=== PATIENT | female | born 1960 | race Two or more races ===

== ENCOUNTER 2020-09-25 11:45 | Outpatient (REF) | payer OTHER, SELFPAY ==
[2020-09-25 13:46] LABS: Hematocrit 39.9 % (37-47); Hemoglobin 12.8 g/dl (12.0-16.0); Mean Corpuscular HGB Conc 32.1 g/dl (31.0-35.0); Mean Corpuscular Hemoglobin 30.6 pg (27.0-33.0); Mean Corpuscular Volume 95.5 fL (80-98); Mean Platelet Volume 9.1 fL (9.4-12.3); Platelet Count 383 X10*3/uL (160-400); Red Blood Count 4.18 X10*6/uL (4.20-5.50); Red Cell Distribution Width 13.9 % (11.0-16.0); White Blood Count 8.1 X10*3/uL (4.8-10.8)
[2020-09-25 13:50] LABS: Estimated Average Glucose 143 mg/dL; Hemoglobin A1c % 6.6 %
[2020-09-25 14:05] LABS: Alanine Aminotransferase 11 U/L (0-31); Albumin Level 4.1 g/dL (3.5-5.0); Alkaline Phosphatase 81 U/L (39-117); Aspartate Amino Transferase 16 U/L (5-31); Bilirubin Direct 0.2 mg/dL (0.0-0.5); Bilirubin Total 0.5 mg/dL (0.0-1.0); Cholesterol 165 mg/dL; HDL Cholesterol 43 mg/dL; LDL Cholesterol Calculated 104 mg/dl; Total Protein 7.3 g/dL (6.5-8.0); Triglycerides 94 mg/dL
[2020-09-25 14:16] LABS: Thyroid Stimulating Hormone 1.72 uIU/mL (0.32-4.0)
== END 2020-09-25 11:46 | disposition home or self-care (01) ==
LOC: HO.LAB 11:45
PROVIDERS: PCP Internal Medicine; Visit Provider Internal Medicine
DX: E11.65 Type 2 diabetes mellitus with hyperglycemia (principal); E78.00 Pure hypercholesterolemia, unspecified
CPT/HCPCS: 36415; 80061; 80076; 83036; 84443; 85027

== ENCOUNTER 2021-05-18 08:02 | Outpatient (REF) | payer OTHER, SELFPAY ==
--- NOTE | ~2021-05-18 | MM_ITS ---
EXAMINATION: MM SCREENING DIGITAL BREAST TOMOSYNTHESIS, BILATERAL CLINICAL INFORMATION: Screening. Asymptomatic. The lifetime risk of breast cancer based on the Tyrer-Cuzick Model is 16%. COMPARISON: Mammography: 01/14/2019, 12/16/2017, 07/05/2016 TECHNIQUE: Digital breast tomosynthesis is performed in both the craniocaudal and mediolateral oblique views along with computer-aided detection (CAD). Synthesized 2D images are generated from the tomosynthesis. Additional right MLO view is provided. FINDINGS: There are scattered areas of fibroglandular density (ACR BI-RADS breast composition Category b). There are no significant masses, abnormal calcifications, or other abnormalities. Parenchymal pattern is similar to prior studies. There is no developing density or architectural abnormality. The axilla and skin contours are unremarkable. No significant changes. MM/MM tomosynthesis screening BI IMPRESSION: There are no significant changes from prior study. ASSESSMENT: BI-RADS 1: Negative RECOMMENDATION: Routine annual mammography screening. This patient's information was entered into a reminder system with a target due date for their next mammogram.
[2021-05-18 08:51] LABS: Alanine Aminotransferase 11 U/L (0-31); Alkaline Phosphatase 79 U/L (39-117); Anion Gap 9 (12-20); Aspartate Amino Transferase 17 U/L (5-31); Bilirubin Total 0.4 mg/dL (0.0-1.0); Blood Urea Nitrogen 13 mg/dL (9-16); Calcium 9.7 mg/dL (8.4-10.2); Carbon Dioxide 29 mmol/L (22-29); Chloride 106 mmol/L (96-108); Cholesterol 256 mg/dL; Estimated Glomerular Filt Rate 56; Glucose Random 130 mg/dL (60-115); HDL Cholesterol 37 mg/dL; LDL Cholesterol Calculated 197 mg/dl; Potassium 4.8 mmol/L (3.3-5.1); Sodium 139 mmol/L (135-145); Total Protein 7.7 g/dL (6.5-8.0); Triglycerides 112 mg/dL
== END 2021-05-18 08:03 | disposition home or self-care (01) ==
LOC: HO.MAMMO 08:02
PROVIDERS: PCP Internal Medicine; Visit Provider Internal Medicine
DX: Z12.31 Encounter for screening mammogram for malignant neoplasm of breast (principal); E78.00 Pure hypercholesterolemia, unspecified
CPT/HCPCS: 36415; 77063; 77067; 80053; 80061

== ENCOUNTER 2021-07-18 07:55 | Outpatient (REF) | payer OTHER, SELFPAY ==
[2021-07-18 09:07] LABS: Alanine Aminotransferase 11 U/L (0-31); Albumin Level 4.2 g/dL (3.5-5.0); Alkaline Phosphatase 73 U/L (39-117); Anion Gap 12 (12-20); Aspartate Amino Transferase 17 U/L (5-31); Bilirubin Total 0.5 mg/dL (0.0-1.0); Blood Urea Nitrogen 10 mg/dL (9-16); Calcium 10.8 mg/dL (8.4-10.2); Carbon Dioxide 28 mmol/L (22-29); Chloride 104 mmol/L (96-108); Cholesterol 183 mg/dL; Estimated Glomerular Filt Rate 51; Glucose Random 107 mg/dL (60-115); HDL Cholesterol 40 mg/dL; LDL Cholesterol Calculated 124 mg/dl; Potassium 5.2 mmol/L (3.3-5.1); Sodium 139 mmol/L (135-145); Total Protein 7.8 g/dL (6.5-8.0); Triglycerides 97 mg/dL
== END 2021-07-18 07:56 | disposition home or self-care (01) ==
LOC: HO.LAB 07:55
PROVIDERS: PCP Internal Medicine; Visit Provider Internal Medicine
DX: E78.00 Pure hypercholesterolemia, unspecified (principal)
CPT/HCPCS: 36415; 80053; 80061

== ENCOUNTER 2021-08-06 07:35 | Outpatient (REF) | payer OTHER, SELFPAY ==
[2021-08-06 08:24] LABS: Anion Gap 13 (12-20); Blood Urea Nitrogen 7 mg/dL (9-16); Calcium 9.4 mg/dL (8.4-10.2); Carbon Dioxide 27 mmol/L (22-29); Chloride 106 mmol/L (96-108); Estimated Glomerular Filt Rate 52; Glucose Random 109 mg/dL (60-115); Potassium 4.8 mmol/L (3.3-5.1); Sodium 141 mmol/L (135-145)
[2021-08-07 11:37] LABS: Calcium (PTHI) 9.3 mg/dL (8.6-10.4); PTHI 87 pg/mL (16-77)
[2021-08-09 14:52] LABS: Calcium, Ionized 5.1 mg/dL (4.8-5.6)
== END 2021-08-06 07:36 | disposition home or self-care (01) ==
LOC: HO.LAB 07:35
PROVIDERS: PCP Internal Medicine; Visit Provider Internal Medicine
DX: E78.00 Pure hypercholesterolemia, unspecified (principal); E83.52 Hypercalcemia
CPT/HCPCS: 36415; 80048; 82330; 83970

== ENCOUNTER 2022-02-06 12:38 | Outpatient (REF) | payer OTHER, SELFPAY ==
[2022-02-06 13:37] LABS: Alanine Aminotransferase 10 U/L (0-31); Albumin Level 4.7 g/dL (3.5-5.0); Alkaline Phosphatase 75 U/L (39-117); Anion Gap 15 (12-20); Aspartate Amino Transferase 16 U/L (5-31); Bilirubin Total 0.4 mg/dL (0.0-1.0); Blood Urea Nitrogen 9 mg/dL (9-16); Calcium 10.1 mg/dL (8.4-10.2); Carbon Dioxide 29 mmol/L (22-29); Chloride 101 mmol/L (96-108); Cholesterol 178 mg/dL; Estimated Glomerular Filt Rate 45; Glucose Random 88 mg/dL (60-115); HDL Cholesterol 58 mg/dL; LDL Cholesterol Calculated 101 mg/dl; Potassium 5.2 mmol/L (3.3-5.1); Sodium 140 mmol/L (135-145); Total Protein 8.2 g/dL (6.5-8.0); Triglycerides 96 mg/dL
== END 2022-02-06 12:39 | disposition home or self-care (01) ==
LOC: HO.LAB 12:38
PROVIDERS: PCP Internal Medicine; Visit Provider Internal Medicine
DX: E78.00 Pure hypercholesterolemia, unspecified (principal)
CPT/HCPCS: 36415; 80053; 80061

== ENCOUNTER 2022-03-08 09:29 | Outpatient (REF) | payer OTHER, SELFPAY ==
--- NOTE | ~2022-03-08 | MM_ITS ---
EXAMINATION: BONE DENSITOMETRY CLINICAL INDICATION: Osteoporosis. COMPARISON: Previous BD dated 01/14/2019 and baseline BD dated 01/19/2015. TECHNIQUE: Using a [employer] DXA System (software version: 13.1) manufactured by [employer], dual-energy x-ray absorptiometry was performed of the lumbar spine and left hip. The images are of good technical quality. Summary results are attached. FINDINGS: AP SPINE L1-L4: Current: BMD 1.001 g/cm2, Z-score -0.1, T-score -1.5, osteopenia, 1.2% decrease from previous, 8.3% decrease from baseline (<5% change is not significant). Prior: BMD 1.013 g/cm2. Baseline: BMD 1.092 g/cm2. LEFT FEMUR, NECK: Current: BMD 0.711 g/cm2, Z-score -1.0, T-score -2.4, osteopenia. Prior: BMD 0.779 g/cm2. Baseline: BMD 0.802 g/cm2. LEFT FEMUR, TOTAL: Current: BMD 0.857 g/cm2, Z-score -0.2, T-score -1.2, osteopenia, 7.6% decrease from previous, 3.4% decrease from baseline (<5% change is not significant). Prior: BMD 0.927 g/cm2. Baseline: BMD 0.887 g/cm2. IDENTIFIED RISK FACTORS: Menopause, height loss, low calcium intake, rheumatoid arthritis, tobacco use (current smoker). HISTORY OF FRACTURE: None listed. MEDICATIONS: None listed. MM/XR DEXA axial skeleton IMPRESSION: 1. DIAGNOSIS: Osteopenia based on the lowest T-score value of -2.4 in the femoral neck applying World Health Organization criteria. 2. 10-YEAR FRACTURE RISK PREDICTION, FRAX: Major osteoporotic fracture (clinical spine, forearm, hip or shoulder) 8.9%. Hip fracture 2.6%. 3. Treatment Recommendations: NOF guidelines recommend consideration for treatment in postmenopausal women and men age 50 and older presenting with the following: -A hip or vertebral (clinical or morphometric) fracture. -T-score less than or equal to -2.5 at the femoral neck or spine after appropriate evaluation to exclude secondary causes. -Low bone mass at the hip or spine and a 10-year fracture probability by FRAX of greater than or equal to 3% for hip fracture or greater than or equal to 20% for major osteoporotic fracture based on the [place] adapted WHO algorithm. 4. Other Recommendations: All treatment decisions require clinical judgment and consideration of individual patient factors, including patient preferences, comorbidities, previous drug use, risk factors not captured in the FRAX model (e.g. frailty, falls, vitamin D deficiency, increased bone turnover, interval significant decline in bone density) and possible under or overestimation of fracture risk by FRAX. Additional medical evaluation for secondary cause of low bone mineral density may be appropriate. FUTURE SCAN RECOMMENDATION: People with diagnosed cases of osteoporosis or at high risk for fracture should have regular bone mineral density tests. For patients eligible for Medicare, routine testing is allowed once every 2 years. The testing frequency can be increased to one year for patients who have rapidly progressing disease, those who are receiving or discontinuing medical therapy to restore bone mass, or have additional risk factors.
== END 2022-03-08 09:30 | disposition home or self-care (01) ==
LOC: HO.MAMMO 09:29
PROVIDERS: PCP Internal Medicine; Visit Provider Internal Medicine
DX: Z13.820 Encounter for screening for osteoporosis (principal); M81.0 Age-related osteoporosis without current pathological fracture; M85.80 Other specified disorders of bone density and structure, unspecified site; Z78.0 Asymptomatic menopausal state
CPT/HCPCS: 77080

== ENCOUNTER 2022-06-28 14:06 | Outpatient (REF) | payer OTHER, SELFPAY ==
--- NOTE | ~2022-06-28 | MM_ITS ---
EXAMINATION: MM SCREENING DIGITAL BREAST TOMOSYNTHESIS, BILATERAL CLINICAL INFORMATION: Screening. Asymptomatic. The lifetime risk of breast cancer based on the Tyrer-Cuzick Model is 17%. COMPARISON: Mammography: 05/18/2021, 01/14/2019, 12/16/2017 TECHNIQUE: Digital breast tomosynthesis is performed in both the craniocaudal and mediolateral oblique views along with computer-aided detection (CAD). Synthesized 2D images are generated from the tomosynthesis. FINDINGS: There are scattered areas of fibroglandular density (ACR BI-RADS breast composition Category b). There are no significant masses, abnormal calcifications, or other abnormalities. No architectural abnormality or developing density or significant change from prior studies. There is a small intramammary node again seen posterior lower left breast on CC view similar to prior studies. There is intramammary node also noted mid upper outer left breast. The axilla and skin contours are unremarkable. MM/MM tomosynthesis screening BI IMPRESSION: No mammographic evidence of malignancy. ASSESSMENT: BI-RADS 2: Benign RECOMMENDATION: Routine annual mammography screening. This patient's information was entered into a reminder system with a target due date for their next mammogram.
== END 2022-06-28 14:07 | disposition home or self-care (01) ==
LOC: HO.MAMMO 14:06
PROVIDERS: Visit Provider Internal Medicine
DX: Z12.31 Encounter for screening mammogram for malignant neoplasm of breast (principal)
CPT/HCPCS: 77063; 77067

== ENCOUNTER 2022-12-19 10:31 | Outpatient (AMB) | payer OTHER, SELFPAY ==
[2022-12-19 10:32] VITALS: BP 112/62; PULSE 73; O2SAT 98; BMI 27.7
--- NOTE | 2022-12-19 10:32 | A.OFFPC_ITS ---
Vital Signs 12/19/22 10:32 Height 5 ft Weight 142 lb BMI 27.7 BP 112/62 Blood Pressure Location Lt brachial Position Sitting Pulse 73 Pulse Source Pulse Oximeter Pulse Oximetry (%) 98 Oxygen Delivery Method Room Air Intake Visit Reasons: discuss DTA form Allergies atorvastatin Allergy (Unknown, Verified 12/19/22 10:32) constipation rosuvastatin Adverse Reaction (Intermediate, Verified 12/19/22 10:32) Constipation Medication List - Last Reconciled 12/19/22 by Sully Yee MD blood sugar diagnostic (FreeStyle Lite Strips) As directed check the BS QD blood-glucose meter (FreeStyle Lite Meter kit) As directed bupropion HCl (Wellbutrin XL) 150 mg PO DAILY fluoxetine 10 mg PO DAILY lancets (FreeStyle Lancets) As directed check BS QD lisinopril 5 mg PO DAILY metformin 500 mg PO DAILY pravastatin 20 mg PO BEDTIME 30 days Tobacco use date assessed: 08/09/22 Dental Screening Dental Screen Date: 12/19/22 Did you have a dental visit in the last 12 months?: Yes Did you have a dental problem in the last 6 months where you did not have access to dental care?: No Was dental information given to patient?: Patient has dentist HPI discuss DTA form HPI Details 62-year-old morbidly obese female smoker with controlled diabetes mellitus hypercholesterolemia and generalized anxiety disorder last seen in September 2022. Mammogram bone density colon test are up-to-date. Disabled form is for family states memory repeats - states she gets lost. patient is with NISH and patient is the husbands aunt. [facility] Medical History (Updated 12/19/22 @ 11:09 by Sully Yee MD) Breast cancer screening by mammogram Hypercholesterolemia Insomnia Obesity (BMI 30-39.9) Tension headache Tobacco abuse Type 2 diabetes mellitus with hyperglycemia Vitamin B12 deficiency Vitamin D deficiency Surgical History H/O excision of ganglion cyst Family History Father Hypertension Mother Diabetes Stroke Sister Breast cancer Sister Uterine cancer Paternal Grandfather Mouth cancer Maternal Aunt Uterine cancer Other Mental health problem Social History (Updated 08/09/22 @ 11:57 by Sully Yee MD) Housing: Apartment Alcohol intake: never Patient Tobacco Use Status: Current everyday Tobacco user Tobacco use type: Cigarette Cigarettes Per Day: 5 Years Smoked: 5 cigarettes per day e-Cigarette/Vaping Use: Never Used Second Hand Smoke Exposure: Yes service: No Current occupational status: unemployed Cognitive needs: No Hearing needs: No Vision needs: No Questionnaire PHQ-9 Over the last 2 weeks, how often have you been bothered by any of the following problems? 1. Little interest or pleasure in doing things: several days 2. Feeling down, depressed, or hopeless: several days 3. Trouble falling or staying asleep, or sleeping too much: several days 4. Feeling tired or having little energy: several days 5. Poor appetite or overeating: several days 6. Feeling bad about yourself - or that you are a failure or have let yourself or your family down: several days 7. Trouble concentrating on things, such as reading the newspaper or watching television: several days 8. Moving or speaking so slowly that other people could have noticed. Or the opposite - being so fidgety or restless that you have been moving around a lot more than usual: not at all 9. Thoughts that you would be better off or of hurting yourself in some way: not at all Total score: 7 Depression Screening Interpretation: Positive Source: Developed by Drs. Michael Grace, Krysten Hernandez, Rich Kan and colleagues, with an educational unruly from [employer]. Thrive Questionnaire Date Thrive assessed: 10/09/22 AUDIT C Alcohol Use Questionnaire (AUDIT-C) 1. How often do you have a drink containing alcohol?: Never 3. How often do you have six or more drinks on one occasion?: Never Total Score: 0 RADHA-7 AMB Questionnaire RADHA-7 Date RADHA - 7 assessed: 08/09/22 Source: Developed by Krysten Marin Kurt Kroenke and colleagues, with an educational unruly from [employer]. Physical exam (Primary Care) Vital Signs: Last Vital Signs Pulse 73 12/19/22 10:32 BP 112/62 12/19/22 10:32 Pulse Ox 98 12/19/22 10:32 Oxygen Delivery Method Room Air 12/19/22 10:32 BMI result Body Mass Index 27.7 Tobacco/Smoking Status: Tobacco use Status Tobacco use date assessed 08/09/22 12/19/22 10:33 Patient Tobacco Use Status Current everyday Tobacco 12/19/22 10:33 Tobacco use type Cigarette 12/19/22 10:33 e-Cigarette/Vaping Use Never Used 12/19/22 10:33 PHQ-9: PHQ-9 Score PHQ-9: Total score 7 12/19/22 11:03 Depression Screening Interpretation: Positive Thrive Assessment: Date of Thrive Assessment Date Thrive assessed 10/09/22 12/19/22 10:33 Const General: alert; No acute distress Eyes Conjunctivae: conjunctivae normal Resp Auscultation: clear to auscultation bilaterally Cardio Rate: regular rate Rhythm: regular rhythm GI Inspection: Yes normal to inspection Extrem General: Yes normal to inspection and No edema Results AMB Hemoglobin A1c AMB Hemoglobin A1c 5.8 % Last Edit by Meaghan Pacheco CMA on 12/19/22 11 :05 Assessment and Plan Assessment & Plan (1) Type 2 diabetes mellitus with hyperglycemia: Code(s): E11.65 - Type 2 diabetes mellitus with hyperglycemia Plan: Decrease the amount of carbohydrate intake, pasta, bread, rice and potatoes are all sugar and that is aside from all the sweet stuff, remember that fruits are good but they are Sweet also. Hemoglobin A1c goal of less than 6.5. Patient is controlled (2) Tobacco abuse: Code(s): Z72.0 - Tobacco use Plan: Patient is strongly advised to stop smoking! (3) Hypercholesterolemia: Code(s): E78.00 - Pure hypercholesterolemia, unspecified Plan: Avoid fried foods, chicken skin, eggs, butter margarine, pastries and meat. Be it pork or beef they have a lot of cholesterol LDL goal of less than 100 patient is on pravastatin 20 mg once a day January 2022 last blood work (4) Generalized anxiety disorder: Comment: [address] counseling Code(s): F41.1 - Generalized anxiety disorder Plan: Continue with counseling and therapy patient is on fluoxetine and bupropion. states this time seeing psychiatrist the reason for the disability papers (5) Cognitive impairment: Code(s): R41.89 - Other symptoms and signs involving cognitive functions and awareness Plan: referral to [facility] clinic Orders: Orders AMB Hemoglobin A1c Today Z13.9 - Encounter for screening, unspecified Referrals Neuropsychiatry Referral R41.89 - Other symptoms and signs involving cognitive functions and awareness Medications: Refilled lisinopril 5 mg PO DAILY 90 tabs 2RF R41.89 - Other symptoms and signs involving cognitive functions and awareness Coding Level of Care Code Est Pt Level 4 (10402) Diagnoses Type 2 diabetes mellitus with hyperglycemia E11.65 Tobacco abuse Z72.0 Hypercholesterolemia E78.00 Generalized anxiety disorder F41.1 Cognitive impairment R41.89
== END 2022-12-19 11:19 | disposition home or self-care (01) ==
PROVIDERS: PCP Internal Medicine; Visit Provider Internal Medicine
DX: E11.65 Type 2 diabetes mellitus with hyperglycemia (principal); Z72.0 Tobacco use; E78.00 Pure hypercholesterolemia, unspecified; F41.1 Generalized anxiety disorder; R41.89 Other symptoms and signs involving cognitive functions and awareness
CPT/HCPCS: 83036; 99214

== ENCOUNTER 2023-01-16 08:21 | Outpatient (REF) | payer OTHER, SELFPAY ==
[2023-01-16 08:48] LABS: Basophils Absolute Auto 0.1 X10*3/uL (0.0-0.2); Basophils Percent Auto 1.1 % (0-2); Eosinophils Absolute Auto 0.2 X10*3/uL (0.0-0.4); Eosinophils Percent Auto 2.7 % (0-4); Hematocrit 40.3 % (37.0-47.0); Imm Gran Abs Auto 0.02 X10*3/uL (0.00-0.03); Imm Gran Pct Auto 0.3 % (0.0-0.4); Lymphocytes Absolute Auto 1.7 X10*3/uL (1.2-4.9); Lymphocytes Percent Auto 27.3 % (20-40); MANUAL DIFF FLAG NO; Mean Corpuscular HGB Conc 32.3 g/dl (31.0-35.0); Mean Corpuscular Hemoglobin 31.7 pg (27.0-33.0); Mean Corpuscular Volume 98.3 fL (80.0-98.0); Mean Platelet Volume 8.9 fL (9.4-12.3); Monocytes Absolute Auto 0.5 X10*3/uL (0.1-1.2); Monocytes Percent Auto 7.6 % (2-11); Neutrophils Absolute Auto 3.9 x10*3/uL (2.0-8.3); Platelet Count 350 X10*3/uL (160-400); Red Cell Distribution Width 13.4 % (11.0-16.0); White Blood Count 6.3 X10*3/uL (4.8-10.8)
[2023-01-16 09:27] LABS: Alanine Aminotransferase 11 U/L (0-31); Albumin Level 4.2 g/dL (3.5-5.0); Alkaline Phosphatase 70 U/L (39-117); Anion Gap 11 (12-20); Aspartate Amino Transferase 19 U/L (5-31); Bilirubin Total 0.4 mg/dL (0.0-1.0); Blood Urea Nitrogen 15 mg/dL (9-16); Calcium 9.4 mg/dL (8.4-10.2); Carbon Dioxide 27 mmol/L (22-29); Chloride 106 mmol/L (96-108); Cholesterol 178 mg/dL (<200); Estimated Glomerular Filt Rate 58; Glucose Random 102 mg/dL (60-115); HDL Cholesterol 46 mg/dL (>40); LDL Cholesterol Calculated 117 mg/dL (<100); Potassium 4.1 mmol/L (3.3-5.1); Sodium 140 mmol/L (135-145); Total Protein 7.5 g/dL (6.5-8.0); Triglycerides 75 mg/dL (<150)
[2023-01-16 09:46] LABS: Free T4 (Free Thyroxine) 0.78 ng/dL (0.71-1.85); Thyroid Stimulating Hormone 1.66 uIU/mL (0.32-4.0); Vitamin D 25-OH Total 20.1 ng/mL (>30)
[2023-01-16 09:52] LABS: Estimated Average Glucose 117 mg/dL; Hemoglobin A1c % 5.7 % (<6.0)
[2023-01-16 09:53] LABS: Folate 7.5 ng/mL (> or = 4.0); Vitamin B12 308 pg/mL (200-900)
[2023-01-16 10:37] LABS: Creatinine Urine 66.82 mg/dL; Microalbumin Urine < 5.0 mg/L
== END 2023-01-16 08:22 | disposition home or self-care (01) ==
LOC: HO.LAB 08:21
PROVIDERS: PCP Internal Medicine; Visit Provider Internal Medicine
DX: E11.65 Type 2 diabetes mellitus with hyperglycemia (principal); E78.00 Pure hypercholesterolemia, unspecified
CPT/HCPCS: 36415; 80053; 80061; 82306; 82570; 82607; 82746; 83036; 84439; 84443; 85025

== ENCOUNTER 2023-01-20 12:43 | Outpatient (AMB) | payer OTHER, SELFPAY ==
--- NOTE | 2023-01-20 12:44 | MHC.PC.OV ---
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 Allergies atorvastatin Allergy (Unknown, Verified 01/20/23 12:50) constipation rosuvastatin Adverse Reaction (Intermediate, Verified 01/20/23 12:50) Constipation Medication List - Last Reconciled 01/20/23 by Sully Yee MD blood sugar diagnostic (FreeStyle Lite Strips) As directed check the BS QD blood-glucose meter (FreeStyle Lite Meter kit) As directed bupropion HCl (Wellbutrin XL) 150 mg PO DAILY cholecalciferol (vitamin D3) 50 mcg PO DAILY 90 days fluoxetine 10 mg PO DAILY lancets (FreeStyle Lancets) As directed check BS QD lisinopril 5 mg PO DAILY metformin 500 mg PO DAILY pravastatin 40 mg PO BEDTIME 30 days Tobacco use date assessed: 01/20/23 Dental Screening Dental Screen Date: 01/20/23 Did you have a dental visit in the last 12 months?: No Did you have a dental problem in the last 6 months where you did not have access to dental care?: No HPI 3 Month F/up HPI Details 62-year-old overweight female smoker with controlled diabetes mellitus hypercholesterolemia generalized anxiety disorder last seen in November 2022. Patient had some concerns about memory and has been referred to [facility] memory [facility]. Mammograms up-to-date bone density is up-to-date colonoscopy is up-to-date. PAtient is trying to stop smoking and states 2 days stopped. has counselling still [facility] Medical History (Updated 01/20/23 @ 13:18 by Sully Yee MD) Breast cancer screening by mammogram Obesity (BMI 30-39.9) Type 2 diabetes mellitus with hyperglycemia Insomnia Tension headache Vitamin B12 deficiency Vitamin D deficiency Tobacco abuse Hypercholesterolemia Surgical History H/O excision of ganglion cyst Family History Father Hypertension Mother Diabetes Stroke Sister Breast cancer Sister Uterine cancer Paternal Grandfather Mouth cancer Maternal Aunt Uterine cancer Other Mental health problem Social History (Updated 08/09/22 @ 11:57 by Sully Yee MD) Housing: Apartment Alcohol intake: never Patient Tobacco Use Status: Current everyday Tobacco user Tobacco use type: Cigarette Cigarettes Per Day: 5 Years Smoked: 5 cigarettes per day e-Cigarette/Vaping Use: Never Used Second Hand Smoke Exposure: Yes service: No Current occupational status: unemployed Cognitive needs: No Hearing needs: No Vision needs: No Questionnaire PHQ-9 Over the last 2 weeks, how often have you been bothered by any of the following problems? 1. Little interest or pleasure in doing things: several days 2. Feeling down, depressed, or hopeless: several days 3. Trouble falling or staying asleep, or sleeping too much: several days 4. Feeling tired or having little energy: several days 5. Poor appetite or overeating: several days 6. Feeling bad about yourself - or that you are a failure or have let yourself or your family down: several days 7. Trouble concentrating on things, such as reading the newspaper or watching television: several days 8. Moving or speaking so slowly that other people could have noticed. Or the opposite - being so fidgety or restless that you have been moving around a lot more than usual: not at all 9. Thoughts that you would be better off or of hurting yourself in some way: not at all Total score: 7 Depression Screening Interpretation: Positive Source: Developed by Drs. Michael Grace, Rich Asif and colleagues, with an educational unruly from [employer]. Thrive Questionnaire Date Thrive assessed: 10/09/22 AUDIT C Alcohol Use Questionnaire (AUDIT-C) 1. How often do you have a drink containing alcohol?: Never 3. How often do you have six or more drinks on one occasion?: Never Total Score: 0 RADHA-7 AMB Questionnaire RADAH-7 Date RADHA - 7 assessed: 08/09/22 Source: Developed by Drs. Michael Grace, Rich Asif and colleagues, with an educational unruly from [employer]. Physical exam (Primary Care) Vital Signs: Last Vital Signs Pulse 69 01/20/23 12:45 BP 102/64 01/20/23 12:45 Pulse Ox 99 01/20/23 12:45 Oxygen Delivery Method Room Air 01/20/23 12:45 BMI result Body Mass Index 27.1 Tobacco/Smoking Status: Tobacco use Status Tobacco use date assessed 01/20/23 01/20/23 12:46 Patient Tobacco Use Status Current everyday Tobacco 01/20/23 12:44 Tobacco use type Cigarette 01/20/23 12:44 e-Cigarette/Vaping Use Never Used 01/20/23 12:44 PHQ-9: PHQ-9 Score PHQ-9: Total score 7 01/20/23 19:35 Depression Screening Interpretation: Positive Thrive Assessment: Date of Thrive Assessment Date Thrive assessed 10/09/22 01/20/23 12:44 Const General: alert; No acute distress Eyes Conjunctivae: conjunctivae normal Resp Auscultation: clear to auscultation bilaterally Cardio Rate: regular rate Rhythm: regular rhythm GI Inspection: Yes normal to inspection Extrem General: Yes normal to inspection and No edema Office Procedures Flu Questionnaire Does the patient have a severe egg allergy?: No Does the patient have severe life threatening allergies?: No Does the patient have a fever or illness today?: No Has the patient ever had Guillain-Avant Syndrome?: No Has the patient ever had any past reaction to a flu shot?: No Immunizations flu vacc [id number] 6mos up(PF) 60 mcg(15 mcgx4)/0.5 mL IM syringe Performing Provider: Sully Yee MD Performing Location: [facility] Administered by: MESSI Salmeron on 01/20/23 12:54 Dose Route Admin Location Dispensed Lot Number Expiration Date [facility] Courtroom Clerk 0.5 mL IM Left Deltoid 0.5 mL [id number] 10/19/23 [id number] [employer] VIS Given Date VIS Provided VIS Publication Date 01/20/23 Single Vaccine 20 Eligibility Eligibility Date Funding Source Not [facility] Eligible 01/20/23 Private Assessment and Plan Assessment & Plan (1) Type 2 diabetes mellitus with hyperglycemia: Code(s): E11.65 - Type 2 diabetes mellitus with hyperglycemia Plan: Decrease the amount of carbohydrate intake, pasta, bread, rice and potatoes are all sugar and that is aside from all the sweet stuff, remember that fruits are good but they are Sweet also. Hemoglobin A1c goal (2) Tobacco abuse: Code(s): Z72.0 - Tobacco use Plan: Patient has been strongly advised to stop smoking! (3) Hypercholesterolemia: Code(s): E78.00 - Pure hypercholesterolemia, unspecified Plan: Avoid fried foods, chicken skin, eggs, butter margarine, pastries and meat. Be it pork or beef they have a lot of cholesterol LDL goal of less than 100 and triglyceride of less than 150. Patient is on pravastatin 20 mg once a day (4) Generalized anxiety disorder: Comment: [place] counseling Code(s): F41.1 - Generalized anxiety disorder Plan: Continue with counseling and therapy. On fluoxetine 10 mg once a day bupropion 150 mg once a day (5) Cognitive impairment: Code(s): R41.89 - Other symptoms and signs involving cognitive functions and awareness Plan: Patient has been referred to memory clinic (6) Vitamin D deficiency: Code(s): E55.9 - Vitamin D deficiency, unspecified Orders: Orders Lipid Panel 3 Months E78.00 - Pure hypercholesterolemia, unspecified Comprehensive Met. Panel 3 Months E78.00 - Pure hypercholesterolemia, unspecified Influenza [id number] Immunization Today Z23 - Encounter for immunization Hemoglobin A1c 3 Months E11.65 - Type 2 diabetes mellitus with hyperglycemia Medications: New cholecalciferol (vitamin D3) 50 mcg PO DAILY 90 caps 3RF 90 days E55.9 - Vitamin D deficiency, unspecified Changed From pravastatin 20 mg PO BEDTIME 30 days 90 tabs 3RF E78.00 - Pure hypercholesterolemia, unspecified To pravastatin 40 mg PO BEDTIME 30 tabs 5RF 30 days E78.00 - Pure hypercholesterolemia, unspecified Coding Level of Care Code Est Pt Level 4 (41153) Diagnoses Type 2 diabetes mellitus with hyperglycemia E11.65 Tobacco abuse Z72.0 Hypercholesterolemia E78.00 Generalized anxiety disorder F41.1 Cognitive impairment R41.89 Vitamin D deficiency E55.9
[2023-01-20 12:45] VITALS: BP 102/64; PULSE 69; O2SAT 99; BMI 27.1
== END 2023-01-20 13:27 | disposition home or self-care (01) ==
PROVIDERS: PCP Internal Medicine; Visit Provider Internal Medicine
DX: Z23 Encounter for immunization (principal); E11.65 Type 2 diabetes mellitus with hyperglycemia; F17.210 Nicotine dependence, cigarettes, uncomplicated; E78.00 Pure hypercholesterolemia, unspecified; F41.1 Generalized anxiety disorder; R41.89 Other symptoms and signs involving cognitive functions and awareness; E55.9 Vitamin D deficiency, unspecified
CPT/HCPCS: 90471; 90686; 99214

== ENCOUNTER 2023-04-16 10:01 | Emergency (ER) | payer OTHER, SELFPAY ==
--- NOTE | ~2023-04-16 | CT_ITS ---
EXAMINATION: CT CHEST WITHOUT CONTRAST CLINICAL INFORMATION: Left lower rib pain COMPARISON: Same day rib series. TECHNIQUE: Multidetector volumetric CT imaging of the chest was done. Axial MIP volume rendering provided. Sagittal and coronal reformatted images were obtained. This CT examination was performed using dose optimization techniques as appropriate, variously including the following: *Automated exposure control *Adjustment of mA and/or kV according to patient size (this includes techniques or standardized protocols for targeted exams where dose is matched to indication/reason for exam; i.e. extremities or head) *Use of iterative reconstruction technique DLP: 266 mGy-cm FINDINGS: ORDER DISPATCHER: Unremarkable LUNGS: Trachea and bronchi are patent. Evaluation of the lower lung willis limited due to respiratory motion. Dependent atelectasis. No consolidations, groundglass opacities are suspicious lung nodules. MEDIASTINUM: No thyroid abnormality. Small hiatal hernia. No pathologic lymphadenopathy. Nonenlarged heart. No pericardial effusion. Nonaneurysmal aorta with mild atherosclerotic calcifications. Nonenlarged pulmonary arteries. CORONARY ARTERY CALCIFICATION: Moderate PLEURA: There is no pleural effusion. No pleural mass or thickening. AXILLA: No lymphadenopathy. UPPER ABDOMEN: Ill-defined hypodensity superior right hepatic lobe, 2:34, second subcentimeter hepatic hypodensity also questioned on 2:37. OSSEOUS STRUCTURES: No suspicious bony pathology. Specifically, no left inferior rib fractures following trauma. CT/CT chest wo IV con IMPRESSION: No acute cardiopulmonary disease or acute posttraumatic bony pathology. Ill-defined liver lesions, consider ultrasound for further evaluation. Fleischner guidelines were followed.
--- NOTE | ~2023-04-16 | XR_ITS ---
EXAMINATION: XR RIBS, LEFT CLINICAL INFORMATION: Fall, left rib pain. COMPARISON: None available. TECHNIQUE: Frontal view of the chest and 3 views of the left ribs. Radiopaque marker placed indicating area of concern indicated by patient overlying the lower left ribs. FINDINGS: There is no gross pneumothorax. Heart size is normal. No gross pleural effusion. No displaced left rib fracture is appreciated, although visualization of the lower left ribs is limited due to overlying soft tissues. XR/XR ribs LT min 3V w CXR1V IMPRESSION: No displaced left rib fracture is appreciated, although visualization of the lower left ribs is limited due to overlying soft tissues. CT scan should be considered for further evaluation if there is clinical concern for other underlying pathology. This study was presented today 04/16/2023 11:25 AM for interpretation. Stat results provided at this time as requested by referring provider.
[2023-04-16 10:10] VITALS: BP 143/88; PULSE 93; RESP 18; O2SAT 98; BMI 25.3
--- NOTE | 2023-04-16 10:48 | ED.FALL ---
HPI - Fall General Chief Complaint: Fall Stated Complaint: Lower back pain - fall Time Seen by Provider: 04/16/23 10:30 Source: patient Mode of arrival: ambulatory Limitations: no limitations History of Present Illness HPI Narrative: This is a 63-year-old female presenting to the emergency department for complaints of left-sided flank/rib pain status post hitting herself on a table, patient reports on [place] she was drinking, stood up, lost her balance, hit her side on a table, did not fall to the ground, hit her head, lose consciousness. Patient reports pain is worse with breathing, laughing and movement better at rest. Denies fevers, chills, chest pain, shortness breath, headache, vision changes, dizziness and weakness Related Data Previous Rx's Medication Instructions Recorded blood sugar diagnostic (FreeStyle #100 ea 05/21/21 Lite Strips) blood-glucose meter (FreeStyle #1 ea 05/21/21 Lite Meter kit) lancets 28 gauge (FreeStyle #100 ea 05/21/21 Lancets) bupropion HCl 150 mg 24 hr tablet, 150 mg PO DAILY #90 tabs 08/19/22 extended release (Wellbutrin XL) fluoxetine 10 mg capsule 10 mg PO DAILY #90 caps 11/26/22 lisinopril 5 mg tablet 5 mg PO DAILY #90 tabs 12/19/22 metformin 500 mg tablet 500 mg PO DAILY #90 tabs 12/30/22 cholecalciferol (vitamin D3) 50 50 mcg PO DAILY 90 days #90 caps 01/20/23 mcg (2,000 unit) capsule pravastatin 40 mg tablet 40 mg PO BEDTIME 30 days #30 tabs 01/20/23 ketorolac 10 mg tablet 10 mg PO TID PRN pain 5 days #15 04/16/23 tabs lidocaine 5 % topical patch 1 patch topical DAILY PRN pain #15 04/16/23 ea Allergies Allergy/AdvReac Type Severity Reaction Status Date / Time atorvastatin Allergy Unknown constipatio Verified 04/16/23 10:08 n rosuvastatin AdvReac Intermediate Constipatio Verified 04/16/23 10:08 n Review of Systems Review of Systems: Constitutional : No Weight loss, No Fever, No Chills, No Fatigue, No Malaise ENT/Mouth : No sore throat, No Rhinorrhea Eyes: No Eye Pain, No Swelling, No Redness Cardiovascular : No Chest Pain, No SOB, No Dyspnea on Exertion, No Orthopnea, No Edema, No Palpitations Respiratory : No Cough, No Sputum, No Wheezing Gastrointestinal : No Nausea, No Vomiting, No Diarrhea, No Constipation, No abdominal Pain, No Hematochezia, No Melena Genitourinary : No Dysuria, No Urinary Frequency, No Hematuria, Musculoskeletal : No joint pain, No Myalgias, No Joint Swelling, + l flank pain Skin : No Skin Lesions, No rash Neuro : No Weakness, No Numbness, No Dizziness, No Headache Psych : No Anxiety/Panic, No Depression All other systems reviewed and are negative Yes all other systems are reviewed and are negative [facility] Past Medical History Attestation statement: The following information was validated with the patient. Source: old records reviewed and nursing notes reviewed Medical History Breast cancer screening by mammogram Obesity (BMI 30-39.9) Type 2 diabetes mellitus with hyperglycemia Insomnia Tension headache Vitamin B12 deficiency Vitamin D deficiency Tobacco abuse Hypercholesterolemia Surgical History H/O excision of ganglion cyst Family History Family History Father Hypertension Mother Diabetes Stroke Sister Breast cancer Sister Uterine cancer Paternal Grandfather Mouth cancer Maternal Aunt Uterine cancer Other Mental health problem Social History Social History Housing: Apartment Alcohol intake: never Patient Tobacco Use Status: Current everyday Tobacco user Tobacco use type: Cigarette Cigarettes Per Day: 5 Years Smoked: 5 cigarettes per day e-Cigarette/Vaping Use: Never Used Second Hand Smoke Exposure: Yes Advance Directives: No Advance Directives Information Provided: No service: No Current occupational status: unemployed Cognitive needs: No Hearing needs: No Vision needs: No Physical Exam Vital Signs: Vital Signs: Last Vital Signs Pulse 93 04/16/23 10:10 Resp 18 04/16/23 10:10 BP 143/88 H 04/16/23 10:10 Pulse Ox 98 04/16/23 10:10 O2 Del Method Room Air 12/27/23 10:10 BMI result Body Mass Index 25.3 vss Appearance: Alert.? Oriented X3.? No acute distress.? Head: Normocephalic, atraumatic, no step-offs or deformities Eyes: Pupils equal, round and reactive to light.? Neck: No pain w/ rom, no discomfort w/ palpation CVS: Normal heart rate and rhythm.? Pulses normal.? Respiratory: No respiratory distress.? Breath sounds normal.? Abdomen: Soft and nontender.? Skin: Skin warm and dry.? Normal skin color.? Normal skin turgor.? Extremities: No lower extremity edema.? No calf ttp. 5/5 strength to bilateral upper and lower extremities + Left rib 6-8 ttp posteriorly Back: No midline tenderness, no C-spine tenderness, full range of motion, no CVA tenderness bilaterally Neuro: Oriented X 3.? No motor deficit.? No sensory deficit. CN 2-12 intact Course Reevaluation(s) Reevaluation #1: X-ray no displaced left rib fracture appreciated. Patient very tender to palpation. CT scan ordered. Time: 11:48 Reevaluation #2: CT scan showing no acute cardiopulmonary disease or acute posttraumatic bony pathology. Ill-defined liver lesions I did include this in patient's discharge and to follow-up with PCP. Educated patient on diagnosis and treatment plan, answered all question, patient verbalizes understanding. At this time patient will be discharged home, advised to return with new or worsening symptoms. Educated on worrisome signs and symptoms and when to return. At this time I feel comfortable discharge home. Time: 12:44 Medications Administered Discontinued Medications Generic Name Dose Route Start Last Admin Trade Name Will PRN Reason Stop Dose Admin Ketorolac Tromethamine 30 mg 04/16/23 10:58 04/16/23 11:06 Ketorolac Tromethamine 15 Mg/Ml Vial IM 04/16/23 10:59 30 mg ONCE ONE Administration Lidocaine 1 patch 04/16/23 10:58 04/16/23 11:06 Lidocaine 4 % Patch Adh..Patch TRANSDERMA 04/16/23 10:59 1 patch ONCE ONE Administration Protocol Medical Decision Making Medical Decision Making [facility] Narrative: 1056 63-year-old female presents for evaluation of left-sided rib/flank pain status post hitting herself on a table on [place]. PE Left rib 6-8 ttp posteriorly w/o ovelrying skin changes. Likely contusion versus paraspinous muscle spasm versus rib fracture. Unlikely foot chest, pneumothorax, under cranial hemorrhage, stroke, posterior stroke. Unlikely metabolic derangements. No preceding symptoms to fall unlikely ACS, PE. Plan x-ray/chest image Differential Diagnosis Differential Diagnoses: The differential diagnosis associated with the presentation includes Likely contusion versus paraspinous muscle spasm versus rib fracture. Unlikely foot chest, pneumothorax, under cranial hemorrhage, stroke, posterior stroke. Unlikely metabolic derangements. No preceding symptoms to fall unlikely ACS, PE. Admission/Observation Consideration of admission/observation: Escalation of care including admission/observation considered unlikley Independent Interpretation I performed an independent interpretation of an: Plain X-Ray Radiology Impression Discussion of test interpretation with radiology: I have reviewed the radiologist's reading. Critical Care Time Critical Care Time Critical Care Time: No Discharge Plan Discharge Clinical Impression: Rib pain on left side Patient Disposition: Home, Self-Care Additional Instructions: Take your medications as prescribed. If you were prescribed antibiotics today, it is important that you take your medication to their entirety, do not skip any doses, do not finish them early. Follow-up with your primary care provider this week. Return to the emergency department with new or worsening symptoms. Such as fevers, chills, chest pain, shortness of breath, nausea, vomiting, dizziness, headache, vision changes, lethargy In case of emergency call 911 Toradol has been sent to your pharmacy, you tolerated this well in the department. Please take this as prescribed do not take this with ibuprofen, or other NSAIDs, do not mix this with alcohol. Side effects of this medication including increased risk for bleeding and possible kidney injury. For scan showed ill-defined liver lesions, please follow-up with your PCP for this. CT/CT chest wo IV con IMPRESSION: No acute cardiopulmonary disease or acute posttraumatic bony pathology. Ill-defined liver lesions, consider ultrasound for further evaluation. Fleischner guidelines were followed. Prescriptions: New ketorolac 10 mg tablet 10 mg PO TID PRN (Reason: pain) 5 Days Qty: 15 0RF lidocaine 5 % adhesive patch,medicated 1 patch topical DAILY PRN (Reason: pain) Qty: 15 0RF Rx Instructions: leave on most painful area for up to 12 hrs No Action bupropion HCl [Wellbutrin XL] 150 mg tablet extended release 24 hr 150 mg PO DAILY Qty: 90 2RF fluoxetine 10 mg capsule 10 mg PO DAILY Qty: 90 2RF metformin 500 mg tablet 500 mg PO DAILY Qty: 90 3RF (DME) blood-glucose meter [FreeStyle Lite Meter] Kit See Rx Instructions .ROUTE .MEDSUPPLY Qty: 1 0RF Rx Instructions: As directed (DME) FreeStyle Lite Strips Strip See Rx Instructions .ROUTE .MEDSUPPLY Qty: 100 3RF Rx Instructions: As directed check the BS QD (DME) lancets [FreeStyle Lancets] 28 gauge misc See Rx Instructions .ROUTE .MEDSUPPLY Qty: 100 3RF Rx Instructions: As directed check BS QD pravastatin 40 mg tablet 40 mg PO BEDTIME 30 Days Qty: 30 5RF cholecalciferol (vitamin D3) 50 mcg (2,000 unit) capsule 50 mcg PO DAILY 90 Days Qty: 90 3RF lisinopril 5 mg tablet 5 mg PO DAILY Qty: 90 2RF Referrals: Po,Sully Gold MD [Primary Care Provider] - 2 days Stand Alone Forms: Work/School Release
[2023-04-16] MEDS: Lidocaine 4 % Patch ADH..PATCH 1 PATCH TRANSDERMA (11:06)
[2023-04-16] MEDS: Ketorolac Tromethamine 15 MG/ML VIAL 30 MG IM (11:06)
== END 2023-04-16 13:27 | disposition home or self-care (01) ==
PROVIDERS: Emergency Provider Emergency Medicine Emergency Medical Services; PCP Internal Medicine
DX: R07.81 Pleurodynia (principal); K76.9 Liver disease, unspecified; E11.9 Type 2 diabetes mellitus without complications
CPT/HCPCS: 71101; 71250; 96372; 99283; 99284; J1885

== ENCOUNTER 2023-05-07 10:38 | Outpatient (AMB) | payer OTHER, SELFPAY ==
[2023-05-07 10:40] VITALS: BP 120/68; PULSE 74; O2SAT 98; BMI 25.0
--- NOTE | 2023-05-07 10:40 | MHC.PC.OV ---
Vital Signs 05/07/23 10:40 Height 5 ft Weight 128 lb BMI 25.0 BP 120/68 Blood Pressure Location Lt brachial Position Sitting Pulse 74 Pulse Source Pulse Oximeter Pulse Oximetry (%) 98 Oxygen Delivery Method Room Air Intake Visit Reasons: HDF Rib pain, cholesterol follow up Allergies atorvastatin Allergy (Unknown, Verified 05/07/23 10:40) constipation rosuvastatin Adverse Reaction (Intermediate, Verified 05/07/23 10:40) Constipation Medication List - Last Reconciled 05/07/23 by Sully Yee MD blood sugar diagnostic (FreeStyle Lite Strips) As directed check the BS QD blood-glucose meter (FreeStyle Lite Meter kit) As directed bupropion HCl (Wellbutrin XL) 150 mg PO DAILY cane As directed cholecalciferol (vitamin D3) 50 mcg PO DAILY 90 days fluoxetine 10 mg PO DAILY ketorolac 10 mg PO TID PRN 5 days lancets (FreeStyle Lancets) As directed check BS QD lidocaine 5% 1 patch topical DAILY PRN lisinopril 5 mg PO DAILY metformin 500 mg PO DAILY pravastatin 40 mg PO BEDTIME 30 days Tobacco use date assessed: 05/07/23 Dental Screening Dental Screen Date: 05/07/23 Did you have a dental visit in the last 12 months?: Yes Did you have a dental problem in the last 6 months where you did not have access to dental care?: No Was dental information given to patient?: Patient has dentist HPI HDF Rib pain, cholesterol follow up HPI Details 63-year-old female smoker with controlled diabetes mellitus hypercholesterolemia generalized anxiety disorder last seen in January 2023. Patient's mammogram is up-to-date june bone density is up-to-date colonoscopy up-to-date 2016 comes in for follow-up. Review of the notes had a fall in March having low back pain has been drinking [place] no fractures had a CT scan done concern about liver lesions. this was the third fall but first on on the road feb, 2023 walking and tripped and non witnessed had a bruise on the R side of face. 2nd time. going up a flight - of stairs feel knee , no head trauma- [facility] Medical History (Updated 05/07/23 @ 11:29 by Sully Yee MD) Breast cancer screening by mammogram Obesity (BMI 30-39.9) Type 2 diabetes mellitus with hyperglycemia Insomnia Tension headache Vitamin B12 deficiency Vitamin D deficiency Tobacco abuse Hypercholesterolemia Surgical History H/O excision of ganglion cyst Family History Father Hypertension Mother Diabetes Stroke Sister Breast cancer Sister Uterine cancer Paternal Grandfather Mouth cancer Maternal Aunt Uterine cancer Other Mental health problem Social History Housing: Apartment Alcohol intake: never Patient Tobacco Use Status: Current everyday Tobacco user Tobacco use type: Cigarette Cigarettes Per Day: 5 Years Smoked: 5 cigarettes per day e-Cigarette/Vaping Use: Never Used Second Hand Smoke Exposure: Yes service: No Current occupational status: unemployed Cognitive needs: No Hearing needs: No Vision needs: No Questionnaire PHQ-9 Over the last 2 weeks, how often have you been bothered by any of the following problems? 1. Little interest or pleasure in doing things: several days 2. Feeling down, depressed, or hopeless: several days 3. Trouble falling or staying asleep, or sleeping too much: several days 4. Feeling tired or having little energy: several days 5. Poor appetite or overeating: several days 6. Feeling bad about yourself - or that you are a failure or have let yourself or your family down: several days 7. Trouble concentrating on things, such as reading the newspaper or watching television: several days 8. Moving or speaking so slowly that other people could have noticed. Or the opposite - being so fidgety or restless that you have been moving around a lot more than usual: not at all 9. Thoughts that you would be better off or of hurting yourself in some way: not at all Total score: 7 Depression Screening Interpretation: Positive Depression Screening Done: Yes Source: Developed by Drs. Michael Grace, Krysten Hernandez, Rich Kan and colleagues, with an educational unruly from [facility]. Thrive Questionnaire Date Thrive assessed: 05/07/23 I am a: Patient What is your living situation today?: I have a steady place to live Within the past 12 months, did the food you bought not last and you didn't have the money to get more?: Never true Within the past 12 months, did you worry whether your food would run out before you got money to buy more?: Never true Do you have trouble paying for medicines?: No Do you have trouble getting transportation to medical appointments?: No Do you have trouble paying your heating and electricity bill?: No Do you have trouble taking care of your child, family member or friend?: No Do you have trouble with day-to-day activities such as bathing, preparing meals, shopping, managing finances, etc.?: No Are you currently unemployed and looking for a job?: No Are you interested in more education?: No AUDIT C Alcohol Use Questionnaire (AUDIT-C) 1. How often do you have a drink containing alcohol?: Never 3. How often do you have six or more drinks on one occasion?: Never Total Score: 0 RADHA-7 AMB Questionnaire RADHA-7 Date RADHA - 7 assessed: 05/07/23 Feeling nervous, anxious, or on edge: 1 = Several days Not being able to stop or control worryin = Several days Worrying too much about different things: 1 = Several days Trouble relaxin = Not at all Being so restless that it is hard to sit still: 0 = Not at all Becoming easily annoyed or irritable: 0 = Not at all Feeling afraid as if something awful might happen: 0 = Not at all Total RADHA-7 score (0-4 normal; 5-9 mild; 10-14 moderate; 15-21 severe): 3 Source: Developed by Drs. Michael Grace, Krysten Hernandez, Rich Kan and colleagues, with an educational unruly from [facility]. Physical exam (Primary Care) Vital Signs: Last Vital Signs Pulse 74 05/07/23 10:40 BP 120/68 05/07/23 10:40 Pulse Ox 98 05/07/23 10:40 Oxygen Delivery Method Room Air 05/07/23 10:40 BMI result Body Mass Index 25.0 Tobacco/Smoking Status: Tobacco use Status Tobacco use date assessed 05/07/23 05/07/23 10:42 Patient Tobacco Use Status Current everyday Tobacco 05/07/23 10:42 Tobacco use type Cigarette 05/07/23 10:42 e-Cigarette/Vaping Use Never Used 05/07/23 10:42 PHQ-9: PHQ-9 Score PHQ-9: Total score 7 05/07/23 11:01 Depression Screening Interpretation: Positive Thrive Assessment: Date of Thrive Assessment Date Thrive assessed 05/07/23 05/07/23 10:42 Const General: alert; No acute distress Eyes Conjunctivae: conjunctivae normal Resp Auscultation: clear to auscultation bilaterally Cardio Rate: regular rate Rhythm: regular rhythm GI Inspection: Yes normal to inspection Extrem General: Yes normal to inspection and No edema Results AMB Hemoglobin A1c AMB Hemoglobin A1c 6.0 % Last Edit by Meaghan Pacheco CMA on 05/07/23 11:02 Results Reviewed Results Reviewed: Laboratory Last Values Hgb A1c (Clinic) 6.0 % (4.0-6.0) 05/07/23 10:43 Assessment and Plan Assessment & Plan (1) Liver lesion: Code(s): K76.9 - Liver disease, unspecified Plan: Will advised for an ultrasound of the liver (2) Type 2 diabetes mellitus with hyperglycemia: Code(s): E11.65 - Type 2 diabetes mellitus with hyperglycemia Plan: Decrease the amount of carbohydrate intake, pasta, bread, rice and potatoes are all sugar and that is aside from all the sweet stuff, remember that fruits are good but they are Sweet also. Hemoglobin A1c goal of less than 6.5 patient is under control with metformin 500 mg once a day (3) Tobacco abuse: Comment: stopped 02/2023 Code(s): Z72.0 - Tobacco use Plan: Strongly advised to stop smoking! (4) Hypercholesterolemia: Code(s): E78.00 - Pure hypercholesterolemia, unspecified Plan: Avoid fried foods, chicken skin, eggs, butter margarine, pastries and meat. Be it pork or beef they have a lot of cholesterol LDL goal of less than 100 and triglyceride of less than 150 presently on pravastatin 40 mg at bedtime (5) Generalized anxiety disorder: Comment: [address] counseling Code(s): F41.1 - Generalized anxiety disorder Plan: Continue with counseling and therapy (6) Situational depression: Comment: Presently have counseling Code(s): F43.21 - Adjustment disorder with depressed mood Plan: Continue with counseling and therapy (7) Gait instability: Code(s): R26.81 - Unsteadiness on feet Plan: concern on frequency falling and cognitive problem (8) Actinic keratosis: Code(s): L57.0 - Actinic keratosis (9) Cognitive impairment: Code(s): R41.89 - Other symptoms and signs involving cognitive functions and awareness Plan: ADVISED NO DRIVING Orders: Orders AMB Hemoglobin A1c Today Z13.9 - Encounter for screening, unspecified PT Evaluation and Treatment Today R26.81 - Unsteadiness on feet CT head/brain wo IV con Today R41.89 - Other symptoms and signs involving cognitive functions and awareness US abdomen complete Today K76.9 - Liver disease, unspecified, R79.89 - Other specified abnormal findings of blood chemistry Referrals Neurology Referral R41.89 - Other symptoms and signs involving cognitive functions and awareness Dermatology Referral L57.0 - Actinic keratosis Medications: New cane As directed 1 ea 0RF R26.81 - Unsteadiness on feet Coding Level of Care Code Est Pt Level 4 (98198) Diagnoses Liver lesion K76.9 Type 2 diabetes mellitus with hyperglycemia E11.65 Tobacco abuse Z72.0 Hypercholesterolemia E78.00 Generalized anxiety disorder F41.1 Situational depression F43.21 Gait instability R26.81 Actinic keratosis L57.0 Cognitive impairment R41.89
== END 2023-05-07 11:49 | disposition home or self-care (01) ==
PROVIDERS: PCP Internal Medicine; Visit Provider Internal Medicine
DX: K76.9 Liver disease, unspecified (principal); E11.65 Type 2 diabetes mellitus with hyperglycemia; F17.210 Nicotine dependence, cigarettes, uncomplicated; E55.9 Vitamin D deficiency, unspecified; F43.21 Adjustment disorder with depressed mood; R26.81 Unsteadiness on feet; L57.0 Actinic keratosis; R41.89 Other symptoms and signs involving cognitive functions and awareness
CPT/HCPCS: 83036; 99214

== ENCOUNTER 2023-05-16 09:03 | Outpatient (REF) | payer OTHER, SELFPAY ==
--- NOTE | ~2023-05-16 | US_ITS ---
EXAMINATION: US ABDOMEN COMPLETE CLINICAL INFORMATION: Other specified abnormal findings of blood chemistry. COMPARISON: None available. TECHNIQUE: Real-time imaging of the abdominal viscera. FINDINGS: PANCREAS: Limited evaluation of the pancreas due to bowel gas distribution ABDOMINAL AORTA: Partially visualized abdominal aorta is unremarkable . There are atherosclerotic calcifications in the distal abdominal aorta. INFERIOR VENA CAVA: Visualized portions are normal. LIVER: The liver is normal in size. The liver contour is normal. Parenchymal echogenicity is increased due to hepatic steatosis. No focal hepatic lesion. There is no intrahepatic biliary duct dilatation seen. GALLBLADDER: Normal. The gallbladder is physiologically distended without evidence of stones, sludge, polyps, wall thickening or pericholecystic fluid. COMMON BILE DUCT: Normal in caliber measuring 0.3 cm in diameter. RIGHT KIDNEY: Normal. No hydronephrosis. No renal calculi or focal parenchymal lesions. The kidney measures 8.1 cm in maximum dimension. LEFT KIDNEY: Normal. No hydronephrosis. No renal calculi or focal parenchymal lesions. The kidney measures 10.3 cm in maximum dimension. SPLEEN: Normal. The spleen measures 7.4 cm in maximum dimension. FREE FLUID: None. US/US abdomen complete IMPRESSION: Mild hepatic steatosis
== END 2023-05-16 09:04 | disposition home or self-care (01) ==
LOC: HO.US 09:03
PROVIDERS: PCP Internal Medicine; Visit Provider Internal Medicine
DX: R79.89 Other specified abnormal findings of blood chemistry (principal); K76.9 Liver disease, unspecified
CPT/HCPCS: 76700

== ENCOUNTER 2023-07-21 12:02 | Outpatient (REF) | payer OTHER, SELFPAY | END 2023-07-21 12:03 | disposition home or self-care (01) | LOC: HO.MAMMO 12:02 | PROVIDERS: PCP Internal Medicine; Visit Provider Internal Medicine | DX: Z12.31 Encounter for screening mammogram for malignant neoplasm of breast (principal) | CPT/HCPCS: 77063; 77067 ==

== ENCOUNTER → 2023-07-21 13:15 | Outpatient (BNV) | payer OTHER, SELFPAY | PROVIDERS: PCP Internal Medicine; Visit Provider Radiology Diagnostic Radiology | DX: Z12.31 Encounter for screening mammogram for malignant neoplasm of breast (principal) | CPT/HCPCS: 77063; 77067 ==

== ENCOUNTER 2023-08-14 08:03 | Outpatient (REF) | payer OTHER, SELFPAY ==
[2023-08-14 08:54] LABS: Estimated Average Glucose 126 mg/dL
[2023-08-14 09:24] LABS: Alanine Aminotransferase 13 U/L (0-31); Alkaline Phosphatase 70 U/L (39-117); Anion Gap 9 (12-20); Aspartate Amino Transferase 16 U/L (5-31); Bilirubin Total 0.3 mg/dL (0.0-1.0); Blood Urea Nitrogen 9 mg/dL (9-16); Calcium 9.3 mg/dL (8.4-10.2); Carbon Dioxide 30 mmol/L (22-29); Chloride 107 mmol/L (96-108); Cholesterol 206 mg/dL (<200); Estimated Glomerular Filt Rate 56; Glucose Random 109 mg/dL (60-115); HDL Cholesterol 52 mg/dL (>40); LDL Cholesterol Calculated 134 mg/dL (<100); Potassium 4.3 mmol/L (3.3-5.1); Sodium 142 mmol/L (135-145); Total Protein 7.4 g/dL (6.5-8.0); Triglycerides 101 mg/dL (<150)
[2023-08-14 09:39] LABS: Free T4 (Free Thyroxine) 0.87 ng/dL (0.71-1.85)
[2023-08-14 09:55] LABS: Creatinine Urine 184.93 mg/dL
== END 2023-08-14 08:04 | disposition home or self-care (01) ==
LOC: HO.LAB 08:03
PROVIDERS: Visit Provider Internal Medicine
DX: E11.65 Type 2 diabetes mellitus with hyperglycemia (principal); E78.00 Pure hypercholesterolemia, unspecified
CPT/HCPCS: 36415; 80053; 80061; 82570; 83036; 84439; 84443

== ENCOUNTER 2023-08-15 09:08 | Outpatient (AMB) | payer OTHER, SELFPAY ==
--- NOTE | 2023-08-15 09:13 | MHC.PC.OV ---
Vital Signs 08/15/23 09:15 Height 5 ft Weight 137 lb 2 oz BMI 26.8 BP 130/66 Blood Pressure Location Lt brachial Position Sitting Pulse 87 Pulse Source Pulse Oximeter Pulse Oximetry (%) 98 Oxygen Delivery Method Room Air Intake Visit Reasons: 3mth f/u Intake Note: Patient is here to follow up on DM, Cognitive impairment, Gait instability. Electrician Technician Required: No Cutting And Creasing Press Operator: Not Required per policy Accompanied by: Self / Same As Patient Allergies atorvastatin Allergy (Unknown, Verified 08/15/23 09:15) constipation rosuvastatin Adverse Reaction (Intermediate, Verified 08/15/23 09:15) Constipation Tobacco use date assessed: 08/15/23 Dental Screening Dental Screen Date: 05/07/23 HPI 3mth f/u HPI Details 63-year-old overweight female smoker (noted weight gain) with diabetes mellitus generalized anxiety disorder hypercholesterolemia coming in for follow-up. Last seen in April having liver lesion and was advised ultrasound. Patient is up-to-date with mammogram bone density colon test. Review of the notes was seen by Neurology for cognitive issues diagnosis of mild cognitive impairment depression with anxiety and has been advised management of counseling and therapy as for ultrasound of the liver showing mild hepatic steatosis. [facility] Medical History (Updated 08/15/23 @ 09:49 by Sully Yee MD) Breast cancer screening by mammogram Obesity (BMI 30-39.9) Type 2 diabetes mellitus with hyperglycemia Insomnia Tension headache Vitamin B12 deficiency Vitamin D deficiency Tobacco abuse Hypercholesterolemia Surgical History H/O excision of ganglion cyst Family History Father Hypertension Mother Diabetes Stroke Sister Breast cancer Sister Uterine cancer Paternal Grandfather Mouth cancer Maternal Aunt Uterine cancer Other Mental health problem Social History (Updated 08/15/23 @ 09:21 by MESSI Lopez) Housing: Apartment Alcohol intake: never Patient Tobacco Use Status: Former Tobacco user Tobacco use type: Cigarette Cigarettes Per Day: 5 Years Smoked: 5 cigarettes per day e-Cigarette/Vaping Use: Never Used Second Hand Smoke Exposure: Yes service: No Current occupational status: unemployed Cognitive needs: No Hearing needs: No Vision needs: No Questionnaire Thrive Questionnaire Date Thrive assessed: 05/07/23 RADHA-7 AMB Questionnaire RADHA-7 Date RADHA - 7 assessed: 05/07/23 Source: Developed by Drs. Michael Grace, Krysten Hernandez, Rich Kan and colleagues, with an educational unruly from [employer]. Physical exam (Primary Care) Vital Signs: Last Vital Signs Pulse 87 08/15/23 09:15 BP 130/66 08/15/23 09:15 Pulse Ox 98 08/15/23 09:15 Oxygen Delivery Method Room Air 08/15/23 09:15 BMI result Body Mass Index 26.8 Tobacco/Smoking Status: Tobacco use Status Tobacco use date assessed 08/15/23 08/15/23 09:23 Patient Tobacco Use Status Former Tobacco user 08/15/23 09:23 Tobacco use type Cigarette 08/15/23 09:23 e-Cigarette/Vaping Use Never Used 08/15/23 09:23 Thrive Assessment: Date of Thrive Assessment Date Thrive assessed 05/07/23 08/15/23 09:23 Const General: alert; No acute distress Eyes Conjunctivae: conjunctivae normal Resp Auscultation: clear to auscultation bilaterally Cardio Rate: regular rate Rhythm: regular rhythm GI Inspection: Yes normal to inspection Extrem General: Yes normal to inspection and No edema Assessment and Plan Assessment & Plan (1) Liver lesion: Comment: Fatty liver April 2023 Code(s): K76.9 - Liver disease, unspecified Plan: Fatty liver, low-fat diet and exercise (2) Cognitive impairment: Code(s): R41.89 - Other symptoms and signs involving cognitive functions and awareness Plan: Patient has seen Neurology and has advised counseling and therapy for the depression with anxiety (3) Overweight: Code(s): E66.3 - Overweight Plan: Continue with diet and exercise (4) Type 2 diabetes mellitus with hyperglycemia: Code(s): E11.65 - Type 2 diabetes mellitus with hyperglycemia Plan: Decrease the amount of carbohydrate intake, pasta, bread, rice and potatoes are all sugar and that is aside from all the sweet stuff, remember that fruits are good but they are Sweet also. Hemoglobin A1c goal of less than 6.5 patient is on metformin 500 mg once a day (5) Hypercholesterolemia: Code(s): E78.00 - Pure hypercholesterolemia, unspecified Plan: Avoid fried foods, chicken skin, eggs, butter margarine, pastries and meat. Be it pork or beef they have a lot of cholesterol LDL goal of less than 100 and triglyceride of less than 150. Patient's blood work is elevated . Pravastatin 40 mg once a day (6) Generalized anxiety disorder: Comment: High [place] counseling Code(s): F41.1 - Generalized anxiety disorder Plan: Patient was advised continue with counseling and therapy (7) Depression with anxiety: Code(s): F41.8 - Other specified anxiety disorders Plan: Neurology has advised increase in medication. Orders: Orders Hemoglobin A1c 3 Months E11.65 - Type 2 diabetes mellitus with hyperglycemia Lipid Panel 3 Months E78.00 - Pure hypercholesterolemia, unspecified Comprehensive Met. Panel 3 Months E11.65 - Type 2 diabetes mellitus with hyperglycemia Medications: Changed From pravastatin 40 mg PO BEDTIME 90 tabs 1RF E78.00 - Pure hypercholesterolemia, unspecified To pravastatin 80 mg PO BEDTIME 30 tabs 4RF E78.00 - Pure hypercholesterolemia, unspecified From fluoxetine 10 mg PO DAILY 90 caps 2RF F43.21 - Adjustment disorder with depressed mood To fluoxetine 20 mg PO DAILY 30 caps 3RF F43.21 - Adjustment disorder with depressed mood Refilled blood sugar diagnostic (FreeStyle Lite Strips) As directed check the BS QD 100 ea 3RF E11.65 - Type 2 diabetes mellitus with hyperglycemia lancets (FreeStyle Lancets) As directed check BS QD 100 ea 3RF E11.65 - Type 2 diabetes mellitus with hyperglycemia metformin 500 mg PO DAILY 90 tabs 3RF lisinopril 5 mg PO DAILY 90 tabs 2RF R41.89 - Other symptoms and signs involving cognitive functions and awareness ketorolac 10 mg PO TID 5 days PRN 15 tabs 0RF pain L57.0 - Actinic keratosis cholecalciferol (vitamin D3) 50 mcg PO DAILY 90 days 90 caps 3RF E55.9 - Vitamin D deficiency, unspecified Coding Level of Care Code Est Pt Level 4 (57857) Diagnoses Liver lesion K76.9 Cognitive impairment R41.89 Overweight E66.3 Type 2 diabetes mellitus with hyperglycemia E11.65 Hypercholesterolemia E78.00 Generalized anxiety disorder F41.1 Depression with anxiety F41.8
[2023-08-15 09:15] VITALS: BP 130/66; PULSE 87; O2SAT 98; BMI 26.8
== END 2023-08-15 10:04 | disposition home or self-care (01) ==
PROVIDERS: PCP Internal Medicine; Visit Provider Internal Medicine
DX: K76.9 Liver disease, unspecified (principal); R41.89 Other symptoms and signs involving cognitive functions and awareness; E66.3 Overweight; E11.65 Type 2 diabetes mellitus with hyperglycemia; E78.00 Pure hypercholesterolemia, unspecified; F41.1 Generalized anxiety disorder; F41.8 Other specified anxiety disorders
CPT/HCPCS: 99214

== ENCOUNTER 2024-04-06 07:33 | Outpatient (REF) | payer OTHER, SELFPAY ==
[2024-04-06 08:44] LABS: Estimated Average Glucose 123 mg/dL; Hemoglobin A1C 132.3193 umol/L; Hemoglobin A1c % 5.9 % (<6.0); Total Hemoglobin (HGBA1C) 3240.7696 umol/L
== END 2024-04-06 07:34 | disposition home or self-care (01) ==
LOC: HO.LAB 07:33
PROVIDERS: PCP Internal Medicine; Visit Provider Internal Medicine
DX: E11.65 Type 2 diabetes mellitus with hyperglycemia (principal)
CPT/HCPCS: 36415; 83036

== ENCOUNTER 2024-04-08 14:54 | Outpatient (AMB) | payer OTHER, SELFPAY ==
--- NOTE | 2024-04-08 15:05 | MHC.PC.OV ---
Vital Signs 04/08/24 15:07 Height 5 ft Weight 133 lb 2 oz BMI 26.0 BP 130/60 Blood Pressure Location Lt brachial Position Sitting Pulse 81 Pulse Source Pulse Oximeter Pulse Oximetry (%) 97 Oxygen Delivery Method Room Air Intake Visit Reasons: DM , Cholesterol Intake Note: Patient is here to follow up on DM, Cholesterol. Pt decline flu shot today. Ui Developer With Angular Js Required: Yes Ui Developer With Angular Js Language: City Letter Carrier Name: Marah ([id number]) Information Interpreted: non-clinical & clinical Planning Supervisor: Not Required per policy Accompanied by: Self / Same As Patient Allergies atorvastatin Allergy (Unknown, Verified 04/08/24 15:06) constipation rosuvastatin Adverse Reaction (Intermediate, Verified 04/08/24 15:06) Constipation Tobacco use date assessed: 04/08/24 Dental Screening Dental Screen Date: 05/07/23 HPI DM , Cholesterol HPI Details Dennis Vega patient is a 64-year-old female presenting with a routine wellness check focusing on the management of hyperlipidemia. The patient had blood work on August 13, revealing a creatinine level of 1.01 mg/dL and a glomerular filtration rate (GFR) described as stable. The Hemoglobin A1c level today is 5.9%, indicating good control of her Type 2 Diabetes Mellitus. Liver function tests are reported as normal. The cholesterol profile is concerning with an LDL level of 134 mg/dL. The patient has a history of hypertension and diabetes, both of which are under control with the ongoing medication regimen. The patient reports dietary modifications to lower cholesterol, such as reduced intake of pasta, buns, rice, potatoes, sweets, fried foods, and red meats. There is a plan to allow dietary relaxation over the [place] and holidays, with a strict return to healthy eating habits afterward. The patient has no significant gastrointestinal, chest, or urinary symptoms. She regularly engages with her healthcare providers for managing her chronic conditions and is compliant with her eye exam follow-up. The patient has not received the influenza vaccine due to a personal belief about illness following vaccination, despite regular yearly inoculation in the past. [facility] Medical History (Updated 04/08/24 @ 15:52 by Sully Yee MD) Breast cancer screening by mammogram Obesity (BMI 30-39.9) Type 2 diabetes mellitus with hyperglycemia Insomnia Tension headache Vitamin B12 deficiency Vitamin D deficiency Tobacco abuse Hypercholesterolemia Surgical History (Updated 04/08/24 @ 15:12 by MESSI Lopez) History of tooth extraction H/O excision of ganglion cyst Family History Father Hypertension Mother Diabetes Stroke Sister Breast cancer Sister Uterine cancer Paternal Grandfather Mouth cancer Maternal Aunt Uterine cancer Other Mental health problem Social History Housing: Apartment Alcohol intake: never Patient Tobacco Use Status: Former Tobacco user Tobacco use type: Cigarette Cigarettes Per Day: 5 Years Smoked: 5 cigarettes per day e-Cigarette/Vaping Use: Never Used Second Hand Smoke Exposure: Yes service: No Current occupational status: unemployed Cognitive needs: No Hearing needs: No Vision needs: No Questionnaire Thrive Questionnaire Date Thrive assessed: 05/07/23 RADHA-7 AMB Questionnaire RADHA-7 Date RADHA - 7 assessed: 05/07/23 Source: Developed by Drs. Michael Grace, Krysten Hernandez, Rich Kan and colleagues, with an educational unruly from [employer]. Physical exam (Primary Care) Vital Signs: Last Vital Signs Pulse 81 04/08/24 15:07 BP 130/60 04/08/24 15:07 Pulse Ox 97 04/08/24 15:07 Oxygen Delivery Method Room Air 04/08/24 15:07 BMI result Body Mass Index 26.0 Tobacco/Smoking Status: Tobacco use Status Tobacco use date assessed 04/08/24 04/08/24 15:14 Patient Tobacco Use Status Former Tobacco user 04/08/24 15:14 Tobacco use type Cigarette 04/08/24 15:14 e-Cigarette/Vaping Use Never Used 04/08/24 15:14 Thrive Assessment: Date of Thrive Assessment Date Thrive assessed 05/07/23 04/08/24 15:14 Const General: alert; No acute distress Eyes Conjunctivae: conjunctivae normal Resp Auscultation: clear to auscultation bilaterally Cardio Rate: regular rate Rhythm: regular rhythm GI Inspection: Yes normal to inspection Extrem General: Yes normal to inspection and No edema Coding Level of Care Code Est Pt Level 4 (95607) Complex EM visit Add On G2211 Diagnoses Type 2 diabetes mellitus with hyperglycemia E11.65 Hypercholesterolemia E78.00 Generalized anxiety disorder F41.1 Cognitive impairment R41.89 Assessment & Plan Assessment & Plan (1) Type 2 diabetes mellitus with hyperglycemia: Comment: 04/2024 Dr. Malik Code(s): E11.65 - Type 2 diabetes mellitus with hyperglycemia Category: Medical Plan: Decrease the amount of carbohydrate intake, pasta, bread, rice and potatoes are all sugar and that is aside from all the sweet stuff, remember that fruits are good but they are Sweet also. Hemoglobin A1c goal of less than 6.5 patient is on metformin 500 mg once a day (2) Hypercholesterolemia: Code(s): E78.00 - Pure hypercholesterolemia, unspecified Category: Medical Plan: Avoid fried foods, chicken skin, eggs, butter margarine, pastries and meat. Be it pork or beef they have a lot of cholesterol LDL goal of less than 100 and triglyceride of less than 150 on pravastatin 80 mg once a day (3) Generalized anxiety disorder: Comment: High [employer] counseling Code(s): F41.1 - Generalized anxiety disorder Category: Medical Plan: Patient was placed on fluoxetine 20 mg once a day (4) Cognitive impairment: Code(s): R41.89 - Other symptoms and signs involving cognitive functions and awareness Category: Medical Plan: Continue to monitor Plan - Hyperlipidemia: Continue dietary modifications with reduced intake of high-cholesterol foods. Blood test requested to monitor lipid levels. Encourage resumption of dietary restrictions after the holiday period. - Hypertension: Continue current antihypertensive regimen. Monitor blood pressure at home. - Type 2 Diabetes Mellitus: Maintain current diabetes management plan. Monitor blood glucose levels regularly. - Preventive Care: Establish bone density testing. Discuss the importance of flu vaccination despite previous concerns; patient currently declines. - Follow-Up: Arrange for standard laboratory testing and review following the current consultations. Keep engagement with eye care follow-ups. Orders: Orders XR DEXA axial skeleton Today M81.0 - Age-related osteoporosis without current pathological fracture, M85.80 - Other specified disorders of bone density and structure, unspecified site
[2024-04-08 15:07] VITALS: BP 130/60; PULSE 81; O2SAT 97; BMI 26.0
== END 2024-04-08 15:59 | disposition home or self-care (01) ==
PROVIDERS: PCP Internal Medicine; Visit Provider Internal Medicine
DX: E11.65 Type 2 diabetes mellitus with hyperglycemia (principal); E78.00 Pure hypercholesterolemia, unspecified; F41.1 Generalized anxiety disorder; R41.89 Other symptoms and signs involving cognitive functions and awareness

== ENCOUNTER → 2024-04-08 14:54 | Outpatient (BNVA) | payer OTHER, SELFPAY | PROVIDERS: PCP Internal Medicine; Visit Provider Internal Medicine | DX: E11.65 Type 2 diabetes mellitus with hyperglycemia (principal); E78.00 Pure hypercholesterolemia, unspecified; F41.1 Generalized anxiety disorder; R41.89 Other symptoms and signs involving cognitive functions and awareness; M81.0 Age-related osteoporosis without current pathological fracture; M85.80 Other specified disorders of bone density and structure, unspecified site | CPT/HCPCS: 99212 ==

== ENCOUNTER 2024-05-14 08:39 | Outpatient (REF) | payer OTHER, SELFPAY ==
--- NOTE | ~2024-05-14 | MM_ITS ---
EXAMINATION: DXA BONE DENSITY AXIAL HISTORY: Estrogen deficiency TECHNIQUE: [email or web address] Dual energy absorptiometry (DEXA) of the lumbar spine, total left hip, and femoral neck was performed. COMPARISON: Comparison is made with the prior examination dated 03/08/2022. FINDINGS: The bone mineral density of the lumbar spine is 0.950 with a T-score of -1.9, and a Z-score of -0.4. This represents a BMD change of -5.1% compared to the prior exam. This is statistically significant. The bone mineral density of the left total hip is 0.822 with a T-score of -1.5, and a Z-score of -0.3. This represents BMD change of -4.1% compared to the prior exam. This is statistically significant. The bone mineral density of the left femoral neck is 0.705 with a T-score of -2.4, and a Z-score of -0.9. This represents BMD change of -0.8% compared to the prior exam. FRACTURE RISK: The FRAX index suggests a ten year probability of major osteoporotic fracture of 7.4%, and of hip fracture 2.2%. MM/XR DEXA axial skeleton IMPRESSION: Based on bone mineral density, and according to World Health Organization (WHO) criteria, the diagnosis is consistent with osteopenia. All bone density values are in grams per centimeter squared (g/cm2). Statistically, 68% of repeat scans fall within 1 SD (+/- 0.010 g/cm2 for AP spine L1-L4) and 1 SD (+/- 0.012 g/cm2 for femur total) FRAX is a trademark of the [employer], a World Health Organization (WHO) Collaborating Center. Electronically signed by: Michael Santos MD 05/14/2024 09:54 AM [facility] [place]
== END 2024-05-14 08:40 | disposition home or self-care (01) ==
LOC: HO.MAMMO 08:39
PROVIDERS: PCP Internal Medicine; Visit Provider Internal Medicine
DX: M81.0 Age-related osteoporosis without current pathological fracture (principal); M85.80 Other specified disorders of bone density and structure, unspecified site
CPT/HCPCS: 77080

== ENCOUNTER → 2024-05-14 08:45 | Outpatient (BNV) | payer OTHER, SELFPAY | PROVIDERS: PCP Internal Medicine; Visit Provider Radiology Diagnostic Radiology | DX: E28.39 Other primary ovarian failure (principal) | CPT/HCPCS: 77085 ==

== ENCOUNTER 2024-07-06 08:37 | Outpatient (REF) | payer OTHER, SELFPAY ==
[2024-07-06 10:01] LABS: Alanine Aminotransferase 16 U/L (0-31); Alkaline Phosphatase 65 U/L (39-117); Anion Gap 10 (12-20); Aspartate Amino Transferase 20 U/L (5-31); Bilirubin Total 0.2 mg/dL (0.0-1.0); Blood Urea Nitrogen 9 mg/dL (9-16); Calcium 9.1 mg/dL (8.4-10.2); Carbon Dioxide 28 mmol/L (22-29); Chloride 111 mmol/L (96-108); Cholesterol 174 mg/dL (<200); Estimated Glomerular Filt Rate 57; Glucose Random 103 mg/dL (60-115); HDL Cholesterol 48 mg/dL (>40); LDL Cholesterol Calculated 111 mg/dL (<100); Potassium 4.2 mmol/L (3.3-5.1); Sodium 145 mmol/L (135-145); Total Protein 7.2 g/dL (6.5-8.0); Triglycerides 79 mg/dL (<150)
== END 2024-07-06 08:38 | disposition home or self-care (01) ==
LOC: HO.LAB 08:37
PROVIDERS: PCP Internal Medicine; Visit Provider Internal Medicine
DX: E78.00 Pure hypercholesterolemia, unspecified (principal); E11.65 Type 2 diabetes mellitus with hyperglycemia
CPT/HCPCS: 36415; 80053; 80061

== ENCOUNTER 2024-07-07 14:29 | Outpatient (AMB) | payer OTHER, SELFPAY ==
--- NOTE | 2024-07-07 14:33 | MHC.PC.OV ---
Vital Signs 07/07/24 14:42 Height 5 ft Weight 137 lb 2 oz BMI 26.8 BP 112/62 Blood Pressure Location Lt brachial Position Sitting Pulse 75 Pulse Source Pulse Oximeter Temp 97.3 F Temp Source Temporal Artery Scan Pulse Oximetry (%) 95 Oxygen Delivery Method Room Air Intake Visit Reasons: cholesterol DM Candy Separator Hard Required: No Internet Marketing Coordinator: Not Required per policy Accompanied by: Self / Same As Patient Allergies atorvastatin Allergy (Unknown, Verified 04/08/24 15:06) constipation rosuvastatin Adverse Reaction (Intermediate, Verified 04/08/24 15:06) Constipation Medication List - Last Reconciled 07/07/24 by Sully Yee MD blood sugar diagnostic (FreeStyle Lite Strips) As directed check the BS QD blood-glucose meter (FreeStyle Lite Meter kit) As directed bupropion HCl XL (Wellbutrin XL) 150 mg PO DAILY cane As directed cholecalciferol (vitamin D3) 50 mcg PO DAILY 90 days fluoxetine 20 mg PO DAILY ketorolac 10 mg PO TID PRN 5 days lancets (FreeStyle Lancets) As directed check BS QD lidocaine 5% 1 patch topical DAILY PRN lisinopril 5 mg PO DAILY metformin 500 mg PO DAILY pravastatin 80 mg PO BEDTIME Tobacco use date assessed: 04/08/24 Dental Screening Dental Screen Date: 07/07/24 Did you have a dental visit in the last 12 months?: No Did you have a dental problem in the last 6 months where you did not have access to dental care?: No Was dental information given to patient?: Patient has dentist [facility] Medical History (Updated 07/07/24 @ 14:57 by Sully Yee MD) Breast cancer screening by mammogram Obesity (BMI 30-39.9) Type 2 diabetes mellitus with hyperglycemia Insomnia Tension headache Vitamin B12 deficiency Vitamin D deficiency Tobacco abuse Hypercholesterolemia Surgical History History of tooth extraction H/O excision of ganglion cyst Family History Father Hypertension Mother Diabetes Stroke Sister Breast cancer Sister Uterine cancer Paternal Grandfather Mouth cancer Maternal Aunt Uterine cancer Other Mental health problem Social History Housing: Apartment Alcohol intake: never Patient Tobacco Use Status: Former Tobacco user Tobacco use type: Cigarette Cigarette Packs Per Day: 0.25 Cigarettes Per Day: 5 Years Smoked: 5 cigarettes per day e-Cigarette/Vaping Use: Never Used Second Hand Smoke Exposure: Yes service: No Current occupational status: unemployed Cognitive needs: No Hearing needs: No Vision needs: No Questionnaire PHQ-9 Over the last 2 weeks, how often have you been bothered by any of the following problems? 1. Little interest or pleasure in doing things: not at all 2. Feeling down, depressed, or hopeless: not at all 3. Trouble falling or staying asleep, or sleeping too much: not at all 4. Feeling tired or having little energy: not at all 5. Poor appetite or overeating: not at all 6. Feeling bad about yourself - or that you are a failure or have let yourself or your family down: not at all 7. Trouble concentrating on things, such as reading the newspaper or watching television: not at all 8. Moving or speaking so slowly that other people could have noticed. Or the opposite - being so fidgety or restless that you have been moving around a lot more than usual: not at all 9. Thoughts that you would be better off or of hurting yourself in some way: not at all Total score: 0 Depression Screening Interpretation: Negative Depression Screening Done: Yes Source: Developed by Drs. Michael Grace, Krysten Hernandez, Rich Kan and colleagues, with an educational unruly from [employer]. Thrive Questionnaire Date Thrive assessed: 07/07/24 I am a: Patient What is your living situation today?: I have a steady place to live Within the past 12 months, did the food you bought not last and you didn't have the money to get more?: Never true Within the past 12 months, did you worry whether your food would run out before you got money to buy more?: Never true Do you have trouble paying for medicines?: No Do you have trouble getting transportation to medical appointments?: No Do you have trouble paying your heating and electricity bill?: No Do you have trouble taking care of your child, family member or friend?: No Do you have trouble with day-to-day activities such as bathing, preparing meals, shopping, managing finances, etc.?: No Are you currently unemployed and looking for a job?: No Are you interested in more education?: No Please select the resources that you would like help with: None Currently or been in a relationship where the following occur: No concerns reported THRIVE Score: 0 AUDIT C Alcohol Use Questionnaire (AUDIT-C) 1. How often do you have a drink containing alcohol?: Never Total Score: 0 RADHA-7 AMB Questionnaire RADHA-7 Date RADHA - 7 assessed: 07/07/24 Feeling nervous, anxious, or on edge: 0 = Not at all Not being able to stop or control worryin = Not at all Worrying too much about different things: 0 = Not at all Trouble relaxin = Not at all Being so restless that it is hard to sit still: 0 = Not at all Becoming easily annoyed or irritable: 0 = Not at all Feeling afraid as if something awful might happen: 0 = Not at all Total RADHA-7 score (0-4 normal; 5-9 mild; 10-14 moderate; 15-21 severe): 0 Source: Developed by Drs. Michael Grace, Krysten Hernandez, Rich Kan and colleagues, with an educational unruly from [employer]. Physical exam (Primary Care) Vital Signs: Last Vital Signs Temp 97.3 F 07/07/24 14:42 Pulse 75 07/07/24 14:42 BP 112/62 07/07/24 14:42 Pulse Ox 95 07/07/24 14:42 Oxygen Delivery Method Room Air 07/07/24 14:42 BMI result Body Mass Index 26.8 Tobacco/Smoking Status: Tobacco use Status Tobacco use date assessed 04/08/24 07/07/24 14:46 Patient Tobacco Use Status Former Tobacco user 07/07/24 14:46 Tobacco use type Cigarette 07/07/24 14:46 e-Cigarette/Vaping Use Never Used 07/07/24 14:46 PHQ-9: PHQ-9 Score PHQ-9: Total score 0 07/07/24 14:46 Depression Screening Interpretation: Negative Thrive Assessment: Date of Thrive Assessment Date Thrive assessed 07/07/24 07/07/24 14:46 Currently or been in a relationship where the following occur: No concerns reported Const General: alert; No acute distress Eyes Conjunctivae: conjunctivae normal Resp Auscultation: clear to auscultation bilaterally Cardio Rate: regular rate Rhythm: regular rhythm GI Inspection: Yes normal to inspection Extrem General: Yes normal to inspection and No edema Results AMB Hemoglobin A1c AMB Hemoglobin A1c 5.9 % Last Edit by MESSI Lopez on 07/07/24 14:59 Coding Level of Care Code Tele Est Pt Level 4 (73585) Complex EM visit Add On G2211 Diagnoses Type 2 diabetes mellitus with hyperglycemia E11.65 Hypercholesterolemia E78.00 Generalized anxiety disorder F41.1 Osteopenia M85.80 Tobacco abuse Z72.0 Assessment & Plan Assessment & Plan (1) Type 2 diabetes mellitus with hyperglycemia: Comment: 04/2024 Dr. Malik Code(s): E11.65 - Type 2 diabetes mellitus with hyperglycemia Category: Medical Plan: Decrease the amount of carbohydrate intake, pasta, bread, rice and potatoes are all sugar and that is aside from all the sweet stuff, remember that fruits are good but they are Sweet also. Hemoglobin A1c goal of less than 6.5. Patient on metformin 500 mg once a day (2) Hypercholesterolemia: Code(s): E78.00 - Pure hypercholesterolemia, unspecified Category: Medical Plan: Avoid fried foods, chicken skin, eggs, butter margarine, pastries and meat. Be it pork or beef they have a lot of cholesterol LDL goal of less than 100 and triglyceride of less than 150. Patient on pravastatin 80 mg noted LDL still above 100 (3) Generalized anxiety disorder: Comment: [address] counseling Code(s): F41.1 - Generalized anxiety disorder Category: Medical Plan: Continue with counseling and therapy on Wellbutrin and fluoxetine (4) Osteopenia: Code(s): M85.80 - Other specified disorders of bone density and structure, unspecified site Category: Medical Plan: Discussed with the patient regarding osteopenia discussed about calcium and vitamin-D discussed about other medications. (5) Tobacco abuse: Comment: stopped 02/2023, started again 3 a day Code(s): Z72.0 - Tobacco use Category: Medical Plan History of Present Illness The patient is a64 -year-old female presenting for the follow-up of chronic conditions such as diabetes, hyperlipidemia, anxiety management, and bone health. Her Type 2 Diabetes Mellitus is controlled with metformin, evident from her hemoglobin A1c of 5.9% in March. For hyperlipidemia, LDL levels remain above target despite pravastatin therapy; thus, medication options are discussed to optimize her lipid levels. Osteopenia has progressed with a 4% decrease in bone density, prompting discussions about interventions and lifestyle modifications to prevent further bone loss. Her mental health, including generalized anxiety disorder and depression, is managed with ongoing medication. There is a noted discrepancy regarding smoking cessation, with occasional use still reported. Various preventive health measures remain up to date, Health Maintenance - Mammogram is current. - Bone Density completed in April 2024 indicating osteopenia. - Last colon cancer screening was in 2015; recommend an update. - Maintain Calcium and Vitamin D supplementation. - Blood sugar management is ongoing with current A1c at 5.9%. - Lipid management ongoing; LDL at 111 mg/dL, considering medication change. - Ophthalmological exam shows no significant retinopathy; manage tortuosity with regular surveillance. Social History - Reports living alone. - Limited physical activity noted; emphasizes the importance of increased physical movement. - Admits to occasional smoking despite previous cessation efforts. - Consumes alternative milk for calcium intake due to intolerance to regular milk. Review of Systems - Cardiovascular: Reports no significant changes. - Musculoskeletal: Denies bone pain but acknowledges general weakness due to osteopenia. - Respiratory: Denies chronic cough or breathing difficulties. - Eyes: Reports no visual changes significant to daily activities. Physical Exam Results - Labs: Hemoglobin A1c 5.9%, LDL-C 111 mg/dL, blood sugar 103 mg/dL, electrolytes normal. - Tests: Bone density test showing osteopenia; Ophthalmology: No retinopathy; borderline tortuosity noted. Plan I will continue managing the patient's diabetes with metformin, monitoring A1c levels. Lipid management requires a change from pravastatin to simvastatin due to insufficient LDL control. The patient is advised to take calcium and vitamin D supplements for osteopenia, with the addition of a weekly bisphosphonate to enhance bone density. Mental health management remains in place with current medications. Smoking cessation is vital for her overall health, emphasizing this is necessary. Colon cancer screening update is recommended. Patient was informed and verbally consented to the use of an ambient scribe for clinic note documentation during this visit. Discussion Notes We discussed optimizing her diabetes and lipid management with current medications, and the potential switch to simvastatin for better cholesterol control. I explained the importance of lifestyle changes and additional medications to manage her osteopenia, focusing on the benefits of exercise and proper supplementation. The decision to address her smoking habits was crucial, emphasizing the health benefits of cessation. I reiterated the necessity of updating her colon cancer screening. The patient expressed willingness to adhere to the management plans discussed. Patient Instructions - Continue metformin for diabetes, aim for A1c below 6.5%. - Switch to simvastatin as directed for cholesterol management. - Take Calcium and Vitamin D supplements daily. - Begin taking prescribed bisphosphonate weekly for bone health. - Stay active to support bone density and overall wellness. - Quit smoking entirely for cardiovascular health. - - Follow all medication instructions carefully, especially avoiding lying down immediately after taking bone health medication. - Monitor for any side effects from new medications and report if any occur. - Make a follow-up appointment for further cholesterol testing in three months. Orders: Orders Hemoglobin A1c 3 Months E11.65 - Type 2 diabetes mellitus with hyperglycemia AMB Hemoglobin A1c Today E11.65 - Type 2 diabetes mellitus with hyperglycemia Lipid Panel 3 Months E11.65 - Type 2 diabetes mellitus with hyperglycemia, E78.00 - Pure hypercholesterolemia, unspecified Comprehensive Met. Panel 3 Months E11.65 - Type 2 diabetes mellitus with hyperglycemia Medications: New alendronate 70 mg PO QWEEK 12 tabs 1RF M85.80 - Other specified disorders of bone density and structure, unspecified site simvastatin 40 mg PO BEDTIME 90 tabs 1RF E78.00 - Pure hypercholesterolemia, unspecified Discontinued pravastatin Discontinued Reason: Doctor's Order 80 mg PO BEDTIME 90 tabs 1RF E78.00 - Pure hypercholesterolemia, unspecified
[2024-07-07 14:42] VITALS: BP 112/62; PULSE 75; TEMP 36.3; O2SAT 95; BMI 26.8
== END 2024-07-07 15:05 | disposition home or self-care (01) ==
LOC: HO.HMCH 14:30
PROVIDERS: PCP Internal Medicine; Visit Provider Internal Medicine
DX: E11.65 Type 2 diabetes mellitus with hyperglycemia (principal); E78.00 Pure hypercholesterolemia, unspecified; F41.1 Generalized anxiety disorder; M85.80 Other specified disorders of bone density and structure, unspecified site; Z72.0 Tobacco use

== ENCOUNTER → 2024-07-07 14:29 | Outpatient (BNVA) | payer OTHER, SELFPAY | PROVIDERS: PCP Internal Medicine; Visit Provider Internal Medicine | DX: E11.65 Type 2 diabetes mellitus with hyperglycemia (principal); E78.00 Pure hypercholesterolemia, unspecified; F41.1 Generalized anxiety disorder; M85.80 Other specified disorders of bone density and structure, unspecified site; Z72.0 Tobacco use | CPT/HCPCS: 83036; 99212 ==

== ENCOUNTER 2024-07-26 12:12 | Outpatient (REF) | payer OTHER, SELFPAY | END 2024-07-26 12:13 | disposition home or self-care (01) | LOC: HO.MAMMO 12:12 | PROVIDERS: PCP Internal Medicine; Visit Provider Internal Medicine | DX: Z12.31 Encounter for screening mammogram for malignant neoplasm of breast (principal) | CPT/HCPCS: 77063; 77067 ==

== ENCOUNTER → 2024-07-26 12:15 | Outpatient (BNV) | payer OTHER, SELFPAY | PROVIDERS: PCP Internal Medicine; Visit Provider Internal Medicine | DX: Z12.31 Encounter for screening mammogram for malignant neoplasm of breast (principal) | CPT/HCPCS: 77063; 77067 ==

== ENCOUNTER 2024-10-08 07:04 | Outpatient (REF) | payer OTHER, SELFPAY ==
[2024-10-08 07:54] LABS: Estimated Average Glucose 117 mg/dL; Hemoglobin A1c % 5.7 % (<6.0)
[2024-10-08 08:12] LABS: Alanine Aminotransferase 16 U/L (0-31); Albumin Level 4.3 g/dL (3.5-5.0); Alkaline Phosphatase 57 U/L (39-117); Anion Gap 11 (12-20); Aspartate Amino Transferase 25 U/L (5-31); Bilirubin Total 0.2 mg/dL (0.0-1.0); Blood Urea Nitrogen 11 mg/dL (9-16); Calcium 9.4 mg/dL (8.4-10.2); Carbon Dioxide 29 mmol/L (22-29); Chloride 107 mmol/L (96-108); Cholesterol 157 mg/dL (<200); Estimated Glomerular Filt Rate 55; Glucose Random 101 mg/dL (60-115); HDL Cholesterol 51 mg/dL (>40); LDL Cholesterol Calculated 97 mg/dL (<100); Potassium 4.3 mmol/L (3.3-5.1); Sodium 143 mmol/L (135-145); Total Protein 6.9 g/dL (6.5-8.0); Triglycerides 49 mg/dL (<150)
== END 2024-10-08 07:05 | disposition home or self-care (01) ==
LOC: HO.LAB 07:04
PROVIDERS: PCP Internal Medicine; Visit Provider Internal Medicine
DX: E11.65 Type 2 diabetes mellitus with hyperglycemia (principal); E78.00 Pure hypercholesterolemia, unspecified
CPT/HCPCS: 36415; 80053; 80061; 83036

== ENCOUNTER 2024-10-12 13:32 | Outpatient (AMB) | payer OTHER, SELFPAY ==
[2024-10-12 13:48] VITALS: BP 110/60; PULSE 96; O2SAT 97; BMI 25.6
--- NOTE | 2024-10-12 13:48 | A.OFFPC_ITS ---
Vital Signs 10/12/24 13:48 Height 5 ft Weight 131 lb 2 oz BMI 25.6 BP 110/60 Blood Pressure Location Lt brachial Position Sitting Pulse 96 Pulse Source Pulse Oximeter Pulse Oximetry (%) 97 Oxygen Delivery Method Room Air Intake Visit Reasons: DM, Osteopenia, cholesterol- A1C needed Home Demonstration Agent Required: No Accompanied by: Self / Same As Patient Allergies atorvastatin Allergy (Unknown, Verified 10/12/24 13:49) constipation rosuvastatin Adverse Reaction (Intermediate, Verified 10/12/24 13:49) Constipation Medication List - Last Reconciled 10/12/24 by Sully Yee MD alendronate 70 mg PO QWEEK blood sugar diagnostic (FreeStyle Lite Strips) As directed check the BS QD blood-glucose meter (FreeStyle Lite Meter kit) As directed bupropion HCl XL (Wellbutrin XL) 150 mg PO DAILY buspirone mg PO cane As directed cholecalciferol (vitamin D3) 50 mcg PO DAILY 90 days fluoxetine 20 mg PO DAILY ketorolac 10 mg PO TID PRN 5 days lancets (FreeStyle Lancets) As directed check BS QD lidocaine 5% 1 patch topical DAILY PRN lisinopril 5 mg PO DAILY metformin 500 mg PO DAILY simvastatin 40 mg PO BEDTIME Tobacco use date assessed: 10/12/24 Dental Screening Dental Screen Date: 10/12/24 Did you have a dental visit in the last 12 months?: No Did you have a dental problem in the last 6 months where you did not have access to dental care?: No Was dental information given to patient?: No [facility] Medical History (Updated 07/07/24 @ 14:57 by Sully Yee MD) Breast cancer screening by mammogram Obesity (BMI 30-39.9) Type 2 diabetes mellitus with hyperglycemia Insomnia Tension headache Vitamin B12 deficiency Vitamin D deficiency Tobacco abuse Hypercholesterolemia Surgical History History of tooth extraction H/O excision of ganglion cyst Family History Father Hypertension Mother Diabetes Stroke Sister Breast cancer Sister Uterine cancer Paternal Grandfather Mouth cancer Maternal Aunt Uterine cancer Other Mental health problem Social History Housing: Apartment Alcohol intake: never Patient Tobacco Use Status: Former Tobacco user Tobacco use type: Cigarette Cigarette Packs Per Day: 0.25 Cigarettes Per Day: 5 Years Smoked: 5 cigarettes per day e-Cigarette/Vaping Use: Never Used Second Hand Smoke Exposure: Yes service: No Current occupational status: unemployed Cognitive needs: No Hearing needs: No Vision needs: No Questionnaire PHQ-9 Over the last 2 weeks, how often have you been bothered by any of the following problems? 1. Little interest or pleasure in doing things: not at all 2. Feeling down, depressed, or hopeless: not at all 3. Trouble falling or staying asleep, or sleeping too much: more than half the days 4. Feeling tired or having little energy: not at all 5. Poor appetite or overeating: more than half the days 6. Feeling bad about yourself - or that you are a failure or have let yourself or your family down: not at all 7. Trouble concentrating on things, such as reading the newspaper or watching television: not at all 8. Moving or speaking so slowly that other people could have noticed. Or the opposite - being so fidgety or restless that you have been moving around a lot m ore than usual: not at all 9. Thoughts that you would be better off or of hurting yourself in some way: not at all Total score: 4 Source: Developed by Drs. Michael Grace, Krysten Hernandez, Rich Kan and colleagues, with an educational unruly from [employer]. Thrive Questionnaire Date Thrive assessed: 10/12/24 I am a: Patient What is your living situation today?: I have a steady place to live Within the past 12 months, did the food you bought not last and you didn't have the money to get more?: Never true Within the past 12 months, did you worry whether your food would run out before you got money to buy more?: Never true Do you have trouble paying for medicines?: No Do you have trouble getting transportation to medical appointments?: Yes Do you have trouble paying your heating and electricity bill?: No Do you have trouble taking care of your child, family member or friend?: No Do you have trouble with day-to-day activities such as bathing, preparing meals, shopping, managing finances, etc.?: No Are you currently unemployed and looking for a job?: No Are you interested in more education?: No Please select the resources that you would like help with: Transportation Currently or been in a relationship where the following occur: No concerns reported THRIVE Score: 1 AUDIT C Alcohol Use Questionnaire (AUDIT-C) 1. How often do you have a drink containing alcohol?: Never 3. How often do you have six or more drinks on one occasion?: Never Total Score: 0 RADHA-7 AMB Questionnaire RADHA-7 Date RADHA - 7 assessed: 10/12/24 Feeling nervous, anxious, or on edge: 0 = Not at all Not being able to stop or control worryin = More than half the days Worrying too much about different things: 0 = Not at all Trouble relaxin = More than half the days Being so restless that it is hard to sit still: 2 = More than half the days Becoming easily annoyed or irritable: 0 = Not at all Feeling afraid as if something awful might happen: 0 = Not at all Total RADHA-7 score (0-4 normal; 5-9 mild; 10-14 moderate; 15-21 severe): 6 Source: Developed by Drs. Mcihael Grace, Krysten Hernandez, Rich Kan and colleagues, with an educational unruly from [employer]. Physical exam (Primary Care) Vital Signs: Last Vital Signs Pulse 96 10/12/24 13:48 BP 110/60 10/12/24 13:48 Pulse Ox 97 10/12/24 13:48 Oxygen Delivery Method Room Air 10/12/24 13:48 BMI result Body Mass Index 25.6 Tobacco/Smoking Status: Tobacco use Status Tobacco use date assessed 10/12/24 10/12/24 13:55 Patient Tobacco Use Status Former Tobacco user 10/12/24 13:55 Tobacco use type Cigarette 10/12/24 13:55 e-Cigarette/Vaping Use Never Used 10/12/24 13:55 PHQ-9: PHQ-9 Score PHQ-9: Total score 4 10/12/24 13:55 Thrive Assessment: Date of Thrive Assessment Date Thrive assessed 10/12/24 10/12/24 13:55 Currently or been in a relationship where the following occur: No concerns repo rted Const General: alert; No acute distress Eyes Conjunctivae: conjunctivae normal Resp Auscultation: clear to auscultation bilaterally Cardio Rate: regular rate Rhythm: regular rhythm GI Inspection: Yes normal to inspection Extrem General: Yes normal to inspection and No edema Coding Level of Care Code Est Pt Level 4 (67222) Diagnoses Type 2 diabetes mellitus with hyperglycemia E11.65 Hypercholesterolemia E78.00 Situational depression F43.21 Tobacco abuse Z72.0 Assessment & Plan Assessment & Plan (1) Type 2 diabetes mellitus with hyperglycemia: Comment: 04/2024 Dr. Malik Code(s): E11.65 - Type 2 diabetes mellitus with hyperglycemia Category: Medical Plan: Decrease the amount of carbohydrate intake, pasta, bread, rice and potatoes are all sugar and that is aside from all the sweet stuff, remember that fruits are good but they are Sweet also. Hemoglobin A1c goal of less than 6.5. Patient on metformin 500 mg once a day (2) Hypercholesterolemia: Code(s): E78.00 - Pure hypercholesterolemia, unspecified Category: Medical Plan: Avoid fried foods, chicken skin, eggs, butter margarine, pastries and meat. Be it pork or beef they have a lot of cholesterol LDL goal of less than 100 and tr iglyceride rule has had what 50 on simvastatin 40 mg once a day (3) Situational depression: Comment: Presently have counseling Code(s): F43.21 - Adjustment disorder with depressed mood Category: Medical Plan: Continue with counseling and therapy on fluoxetine 20 mg once a day Bue per prior on 150 mg once a day (4) Tobacco abuse: Comment: stopped 02/2023, started again 3 a day Code(s): Z72.0 - Tobacco use Category: Medical Plan: Patient is strongly advised to stop smoking! Plan History of Present Illness The patient is a 64-year-old female presenting for a follow-up visit. She has a history of diabetes mellitus, currently managed with metformin 500 mg once daily, with a recent hemoglobin A1c of 5.7, indicating good glycemic con trol. Her last blood work in September showed normal electrolytes, renal function, and liver function. The patient also has hypercholesterolemia, with an LDL cholesterol level of 97 mg/dL, managed with simvastatin 40 mg once daily. The goal is to maintain LDL levels below 100 mg/dL. She is being treated for anxiety disorder with fluoxetine 20 mg and bupropion 150 mg daily, and continues with counseling and therapy. The patient is a smoker and has been strongly advised to quit smoking. Preventative care measures include up-to-date mammogram and bone density screenings, with the last colonoscopy performed in 2016. Health Maintenance - Mammogram and bone density screenings are up to date. - Last colonoscopy was performed in 2016. - Advised to quit smoking to improve overall health. Social History - Tobacco use: Patient is a smoker and has been advised to quit. Review of Systems - General: Reports weight loss of 6 pounds. Denies nausea or vomiting. - Respiratory: Denies dyspnea or chest pain. Physical Exam Results - Labs: Hemoglobin A1c is 5.7, LDL cholesterol is 97 mg/dL, normal electrolytes, renal function, and liver function. Plan The patient's diabetes mellitus is well-controlled with a hemoglobin A1c of 5.7, and she will continue on metformin 500 mg daily with a goal to maintain A1c below 6.5. For hypercholesterolemia, the patient will continue simvastatin 40 mg daily, aiming to keep LDL cholesterol below 100 mg/dL. Anxiety disorder management includes ongoing therapy and medication with fluoxetine 20 mg and bupropion 150 mg daily. The patient is strongly advised to cease smoking to improve her overall health. Preventative care measures are up to date, including mammogram and bone density screenings, with a recommendation to consider scheduling a colonoscopy given the last one was in 2015. Patient was informed and verbally consented to the use of an ambient scribe for clinic note documentation during this visit. Discussion Notes During the visit, I discussed the patient's current management of diabetes mellitus, emphasizing the importance of maintaining her hemoglobin A1c below 6.5 and continuing metformin therapy. We reviewed her cholesterol management plan, aiming to keep LDL levels below 100 mg/dL with simvastatin. I advised the patient to continue her current anxiety disorder treatment and highlighted the importance of quitting smoking for her overall health. Preventative care was addressed, confirming that her mammogram and bone density screenings are current, and I recommended considering a colonoscopy since her last one was in 2015. Patient Instructions - Continue taking metformin 500 mg daily for diabetes management. - Maintain simvastatin 40 mg daily to manage cholesterol levels. - Keep up with therapy and medications for anxiety disorder. - Strongly consider quitting smoking to improve health. - Ensure mammogram and bone density screenings remain up to date. - Plan for a colonoscopy, as the last one was in 2016.
== END 2024-10-12 14:35 | disposition home or self-care (01) ==
LOC: HO.HMCH 13:33
PROVIDERS: PCP Internal Medicine; Visit Provider Internal Medicine
DX: E11.65 Type 2 diabetes mellitus with hyperglycemia (principal); E78.00 Pure hypercholesterolemia, unspecified; F43.21 Adjustment disorder with depressed mood; Z72.0 Tobacco use

== ENCOUNTER → 2024-10-12 13:32 | Outpatient (BNVA) | payer OTHER, SELFPAY | PROVIDERS: PCP Internal Medicine; Visit Provider Internal Medicine | DX: E11.65 Type 2 diabetes mellitus with hyperglycemia (principal); M85.80 Other specified disorders of bone density and structure, unspecified site; E78.00 Pure hypercholesterolemia, unspecified; F43.21 Adjustment disorder with depressed mood; Z71.6 Tobacco abuse counseling; F17.210 Nicotine dependence, cigarettes, uncomplicated; Z79.84 Long term (current) use of oral hypoglycemic drugs | CPT/HCPCS: 99212 ==

== ENCOUNTER 2025-03-07 09:35 | Outpatient (AMB) | payer OTHER, SELFPAY ==
--- NOTE | 2025-03-07 09:53 | A.OFFVIS_ITS ---
Intake Visit Reasons: [facility]M [facility] Allergies atorvastatin Allergy (Unknown, Verified 10/12/24 13:49) constipation rosuvastatin Adverse Reaction (Intermediate, Verified 10/12/24 13:49) Constipation HPI Comments Details: 65 yo woman with cognitive issues, mostly forgetfulness, with significant stress/anxiety/depression related to how her life changed after her . She was doing well with 20 mg of fluoxetine a day. No side- effects. Mood was better. Sleep was better. [facility] Medical History (Updated 03/07/25 @ 09:54 by Bennett Ramirez MD) Breast cancer screening by mammogram Obesity (BMI 30-39.9) Type 2 diabetes mellitus with hyperglycemia Insomnia Tension headache Vitamin B12 deficiency Vitamin D deficiency Tobacco abuse Hypercholesterolemia Surgical History History of tooth extraction H/O excision of ganglion cyst Family History Father Hypertension Mother Diabetes Stroke Sister Breast cancer Sister Uterine cancer Paternal Grandfather Mouth cancer Maternal Aunt Uterine cancer Other Mental health problem Social History Housing: Apartment Alcohol intake: never Patient Tobacco Use Status: Former Tobacco user Tobacco use type: Cigarette Cigarette Packs Per Day: 0.25 Cigarettes Per Day: 5 Years Smoked: 5 cigarettes per day e-Cigarette/Vaping Use: Never Used Second Hand Smoke Exposure: Yes service: No Current occupational status: unemployed Cognitive needs: No Hearing needs: No Vision needs: No Review of Systems Narrative Constitutional:?No fever, chills, fatigue, weight loss, or night sweats. HEENT:?No headache, vision changes, hearing loss, nasal congestion, sore throat. Neurological:?No dizziness, syncope, seizures, numbness, tingling, weakness, tremors, memory loss. Psychiatric:?No anxiety, depression, mood swings, sleep disturbance, or hallucinations. Endocrine:?No heat/cold intolerance, polydipsia, polyuria, or hair/skin changes. Hematologic/Lymphatic:?No easy bruising, bleeding, or lymphadenopathy. Integumentary (Skin):?No rash, lesions, itching, or color changes. ? Physical Exam Neuro Other: Mental Status: Alert and oriented to person, place, and time. Normal attention. Normal spontaneous speech, fluency, and comprehension. Cranial Nerves: CN II: Visual willis full to confrontation, visual acuity intact. CN III, IV, : Pupils equal, round, reactive to light and accommodation. Extraocular movements are normal. CN V: Facial sensation is normal. CN VII: Facial movements symmetrical. CN VIII: Hearing intact to bedside conversation is normal. CN IX, X: Palate elevates symmetrically. CN XI: Shoulder shrug and head turn symmetrical. CN XII: Tongue midline without atrophy or fasciculations. Extrapyramidal: Full facial expressions and blinking. No rigidity. Movements are appropriate with no tremor or abnormality. Speech: Normal; no dysarthria or tremor. Assessment & Plan Assessment & Plan (1) MCI (mild cognitive impairment): Code(s): G31.84 - Mild cognitive impairment of uncertain or unknown etiology Category: Medical (2) Familial tremor: Code(s): G25.0 - Essential tremor Category: Medical (3) Depression with anxiety: Code(s): F41.8 - Other specified anxiety disorders Category: Medical Plan Impression: 1. Benign essential familial tremor 2. Mild cognitive impairment with anxiety and depression Recommendations: 1. Fluoxetine 20 mg a day 2. No treatment for mild tremor this time Medications: Refilled fluoxetine 20 mg PO DAILY 90 caps 1RF F43.21 - Adjustment disorder with depressed mood Coding Level of Care Code Est Pt Level 3 (33519) Diagnoses MCI (mild cognitive impairment) G31.84 Familial tremor G25.0 Depression with anxiety F41.8
== END 2025-03-07 10:06 | disposition home or self-care (01) ==
LOC: HO.HSM 09:35
PROVIDERS: PCP Internal Medicine; Referring Provider Internal Medicine; Visit Provider Psychiatry & Neurology Neurology
DX: G31.84 Mild cognitive impairment of uncertain or unknown etiology (principal); G25.0 Essential tremor; F41.8 Other specified anxiety disorders
CPT/HCPCS: 99213

== ENCOUNTER → 2025-03-07 09:35 | Outpatient (BNVA) | payer OTHER, SELFPAY | PROVIDERS: PCP Internal Medicine; Referring Provider Internal Medicine; Visit Provider Psychiatry & Neurology Neurology | DX: G31.84 Mild cognitive impairment of uncertain or unknown etiology (principal); G25.0 Essential tremor; F41.8 Other specified anxiety disorders | CPT/HCPCS: 99212 ==